=== PATIENT | female | born 1960 | race Caucasian/White ===

== ENCOUNTER 2023-07-15 11:16 | Emergency (ER) | payer MEDICAID, OTHER ==
[~2023-07-15] VITALS: Ht 152.4 cm; Wt 75.0 kg
[2023-07-15 12:28] LABS: Basophils # (auto) 0 10 ^3/uL (0-0.2); Basophils % (auto) 0.3 % (0.0-2.0); Eosinophils # (auto) 0 10 ^3/uL (0-0.8); Eosinophils % (auto) 0.2 % (0.0-7.0); Hematocrit 43.2 % (36.0-46.0); Hemoglobin 14.4 g/dL (12.2-16.2); Lymphocytes # (auto) 0.6 10 ^3/uL (0.4-5.4); Lymphocytes % (auto) 10.4 % (10.0-50.0); Mean Corpuscular Hemoglobin 33.2 pg (28.0-32.0); Mean Corpuscular Hgb Conc. 33.2 g/dL (32.0-36.0); Mean Corpuscular Volume 99.9 fL (80.0-100.0); Monocytes # (auto) 0.6 10 ^3/uL (0-1.3); Monocytes % (auto) 10.3 % (0.0-12.0); Neutrophils # (auto) 4.4 10 ^3/uL (1.6-8.6); Neutrophils % (auto) 78.8 % (37.0-80.0); Nucleated Red Blood Cells % 0.1 %; Red Blood Cells 4.33 10^6/uL (4.0-5.20); Red Cell Distribution Width 17.1 % (11.8-14.3); White Blood Cell 5.6 10^3/uL (4.4-10.8)
[2023-07-15 12:44] LABS: INR 1.01 (0.9-1.15); Partial Thromboplastin Time 23.3 SEC (24.5-34.5); Prothrombin Time 10.6 sec (9.3-11.8)
[2023-07-15 13:01] LABS: Alanine Aminotransferase 37 U/L (7-40); Albumin 4.5 g/dL (3.2-4.8); Alkaline Phosphatase 72 U/L (46-116); Anion Gap 14 (5-15); Aspartate Aminotransferase 89 U/L (13-40); Bilirubin, Total 0.8 mg/dL (0.2-1.0); Calcium 9.2 mg/dL (8.7-10.4); Carbon Dioxide 17 mmol/L (20-30); Chloride 96 mmol/L (98-107); Glucose 94 mg/dL (74-106); Sodium 127 mmol/L (136-145); Total Protein 7.7 g/dL (5.7-8.2)
[2023-07-15 13:10] LABS: BUN/Creatinine Ratio 5.6 (10.0-20.0); Blood Urea Nitrogen < 5 mg/dL (9-23)
[2023-07-15] MEDS ORDERED: NAPR-1334 PO (14:22)
[2023-07-15] MEDS ORDERED: HYDR-4902 PO (14:23)
[2023-07-15] MEDS ORDERED: MORPHINE SULFATE INJ 2 MG/ml SYRG IM ONE (17:30)
[2023-07-15] MEDS ORDERED: TETANUS-DIPTH-ACEL PERTUSSIS 0.5ML SYR Tdap IM ONE (17:30)
[2023-07-15] MEDS ORDERED: ONDANSETRON ODT 4 MG TAB PO ONE (17:30)
[2023-07-15 17:51] VITALS: BP 193/94; TEMP 98.7
[2023-07-15 17:58] VITALS: PULSE 80; RESP 16; O2SAT 98
== END 2023-07-15 18:09 | disposition home or self-care (01) ==
LOC: EDBD 11:16 → ER 11:16
DX: S42.302A Unspecified fracture of shaft of humerus, left arm, initial encounter for closed fracture (principal); F17.210 Nicotine dependence, cigarettes, uncomplicated; W18.09XA Striking against other object with subsequent fall, initial encounter; Y93.89 Activity, other specified; Y92.89 Other specified places as the place of occurrence of the external cause; Y99.8 Other external cause status
CPT/HCPCS: 29105; 36415; 71045; 73060; 73070; 73090; 80053; 84484; 85025; 85610; 85730; 96372; 99284; J2270; Q0162

== ENCOUNTER 2024-11-03 17:18 | Emergency (ER) | payer OTHER ==
[~2024-11-03] VITALS: Ht 160 cm; Wt 61.8 kg
[~2024-11-03 17:18] MED LIST: HYDR-4902 PO; NAPR-1335 PO
[2024-11-03] MEDS: ONDANSETRON HCL 4 MG/2 ML VIAL IV ONE (17:52)
[2024-11-03] MEDS: MORPHINE SULFATE 4 MG/ML SYR/VIAL IV ONE (17:57)
--- NOTE | 2024-11-03 18:52 | DVH ---
Exam: CT CT AB PEL WO CON-NO ORAL OR IV History: abd pain Comparison Study: None available at time of dictation. TECHNIQUE: Multidetector CT of the abdomen was performed from lung bases to pubic symphysis. Imaging was performed without IV contrast. Axial, coronal and sagittal multiplanar reformats were obtained fr om the axial data set by the technologist. Radiation Dose Information: CT Dose: CTDI volume is 6.29 mGy. Dose-length product is 326.71 mGy*cm FINDINGS: Evaluation of solid organs is limited due to lack of intravenous contrast use. Findings: Lung Bases: No acute or significant lung base finding. Normal heart size. No pleural or pericardial effusion. Liver: The liver is normal in size. No focal lesions. Gallbladder and Biliary Tree: Unremarkable Spleen: Unremarkable Pancreas: The pancreas is grossly normal in appearance. Adrenal Glands: Unremarkable Kidneys: Kidneys are grossly normal without calculi or hydronephrosis. Bladder: Grossly unremarkable for degree of distention. Bowel: The stomach is grossly normal in appearance. Postop changes to the stomach. Small bowel and c olon are normal in caliber and distribution. The appendix is not visualized; however, no secondary f indings of acute appendicitis identified. Ascites: Absent Lymphadenopathy: No mesenteric, retroperitoneal or periportal lymphadenopathy. Abdominal Wall and Mesentery: Unremarkable. Vasculature: The visualized abdominal aorta is normal in size and caliber. Evaluation of abdominal a nd pelvic vessels is limited due to lack of intravenous contrast. Pelvic Organs: Unremarkable Musculoskeletal: No aggressive focal bony lesions, acute fractures or dislocation. Dextroscoliosis th oracolumbar spine apex T12-L1 and L2 Soft tissues: Unremarkable IMPRESSION: 1. No findings of bowel obstruction 2. Postop changes to the stomach. 3. No nephrolithiasis or hydronephrosis 4. Radiation optimization: All CT scans at this facility use at least one of these dose optimization te chniques: automated exposure control mA and/or kV adjustment per patient size (includes targeted exa ms where dose is matched to clinical indication) or iterative reconstruction.
[2024-11-03 19:12] LABS: Basophils # (auto) 0 10 ^3/uL (0-0.2); Basophils % (auto) 0.2 % (0.0-2.0); Eosinophils # (auto) 0 10 ^3/uL (0-0.8); Eosinophils % (auto) 0.2 % (0.0-7.0); Hematocrit 36.4 % (36.0-46.0); Hemoglobin 12.5 g/dL (12.2-16.2); Lymphocytes # (auto) 1.2 10 ^3/uL (0.4-5.4); Lymphocytes % (auto) 16.9 % (10.0-50.0); Mean Corpuscular Hemoglobin 31.8 pg (28.0-32.0); Mean Corpuscular Hgb Conc. 34.4 g/dL (32.0-36.0); Mean Corpuscular Volume 92.5 fL (80.0-100.0); Monocytes # (auto) 0.3 10 ^3/uL (0-1.3); Monocytes % (auto) 4.7 % (0.0-12.0); Neutrophils # (auto) 5.5 10 ^3/uL (1.6-8.6); Platelet Count (auto) 282 10^3/uL (140-450); Red Blood Cells 3.94 10^6/uL (4.0-5.20); Red Cell Distribution Width 14.7 % (11.8-14.3)
[2024-11-03 19:24] LABS: Alanine Aminotransferase 14 U/L (7-40); Alkaline Phosphatase 100 U/L (46-116); Anion Gap 14 (5-15); Aspartate Aminotransferase 22 U/L (13-40); BUN/Creatinine Ratio 13.5 (10.0-20.0); Blood Urea Nitrogen 17 mg/dL (9-23); Calcium 10.3 mg/dL (8.7-10.4); Carbon Dioxide 22 mmol/L (20-31); Lipase 48 U/L (12-53); Potassium 3.9 mmol/L (3.5-5.1)
[2024-11-03 19:25] LABS: Total Protein 7.8 g/dL (5.7-8.2)
[2024-11-03 19:26] LABS: Albumin 4.8 g/dL (3.2-4.8); Bilirubin, Total 1.4 mg/dL (0.2-1.0); Chloride 96 mmol/L (98-107); Glucose 179 mg/dL (74-106); Sodium 132 mmol/L (136-145)
--- NOTE | 2024-11-03 20:14 | DVH ---
Procedure: CT UPPER EXTREMITY WO CONTRAST 11/03/2024 06:14 PM Indication: fall Comparison Study: Radiograph dated 07/15/2023 Technique: Axial images left humerus were obtained and reformatted in coronal and sagittal planes. All CT scans at this medical facility are performed using dose modulation techniques as appropriate t o a performed exam including the following: Automated exposure control was utilized; adjustment of th e MA and/or KV according to patient size; and use of iterative reconstruction technique. CT Dose: CTDI volume is 11.27 mGy. Dose-length product is 373.83 mGy*cm FINDINGS: Bones: No acute fracture or dislocation. 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 The glenohumeral and acromioclavicular joints are maint ained. The elbow joint is maintained. Soft tissues: Questionable puncture wound at tip of distal humeral fracture or pointing towards the a nterior mid arm markedly thinning the subcutaneous tissues. Correlate clinically. No large hematoma i s seen. Other: Left basilar subsegmental atelectasis. Left breast implant noted. IMPRESSION: 1. No acute fracture. 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
[2024-11-03] MEDS: HYDROcodone-ACET 5/325MG TAB PO ONE (21:23)
[2024-11-03] MEDS: LIDOCAINE VISCOUS 2% 15ML UD MT ONE (21:52)
[2024-11-03] MEDS: MAALOX PLUS or MAALOX 30 ML PO ONE (21:53)
--- NOTE | 2024-11-03 22:30 | ED.PDOC ---
GI ASSESSMENT HPI Comments 63-year-old female brought in by EMS. Patient complaining of lower abdominal pain which started today unprovoked. No new foods no new medications. Patient reports 10 out 10 pain. Upon arrival he was noted that patient does have a previous left humerus fracture that she never had treated. Patient states she went to two different travel specialist and they told her they could not operate. Patient states initial injury was over a year and a half ago. Chief Complaint: Abdominal Pain Time Seen by MD: 17:26 Primary Care Provider: unknown Reviewed Notes: Nurses Notes Allergies: Coded Allergies: NO KNOWN ALLERGIES (Unverified , 07/02/15) Home Meds Active Scripts Hydrocodone-Acetaminophen (Hydrocodone Bitartrate/AC 5-325 mg) 1 Tab Tab, 1 TAB PO Q6HP PRN for 3 Days, #12 TAB Prov:SAMIR MATHEW MD 07/15/23 Naproxen Sodium (Naproxen) 220 Mg Tab, 220 MG PO BID for 7 Days, #14 TAB Prov:SAMIR MATHEW MD 07/15/23 Information Source: Patient, Emergency Med Personnel Mode of Arrival: EMS Past Medical History PAST MEDICAL HISTORY: Denies Surgical History: Hernia Repair 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 Family History Family History: Reviewed,noncontributory to illness Social History Smoker: Cigarettes Alcohol: Occasionally Drugs: Denies Drug Use Lives In: Home Constitutional: denies: chills, diaphoresis, fatigue, fever, malaise, sweats, weakness, others EENTM: denies: blurred vision, double vision, ear bleeding, ear discharge, ear drainage, ear pain, ear ringing, eye pain, eye redness, hearing loss, mouth pain, mouth swelling, nasal discharge, nose bleeding, nose congestion, nose pain, photophobia, tearing, throat pain, throat swelling, voice changes, others Respiratory: denies: cough, hemoptysis, orthopnea, SOB at rest, shortness of breath, SOB with excertion, stridor, wheezing, others Cardiovascular: denies: chest pain, dizzy spells, diaphoresis, Dyspnea on exertion, edema, irregular heart beat, left arm pain, lightheadedness, palpitations, PND, syncope, others Gastrointestinal: reports: abdominal pain, nausea; denies: abdomen distended, blood streaked bowels, constipated, diarrhea, dysphagia, difficulty swallowing, hematemesis, melena, poor appetite, poor fluid intake, rectal bleeding, rectal pain, vomiting, others Genitourinary: denies: abnormal vagina bleeding, burning, dyspareunia, dysuria, flank pain, frequency, hematuria, incontinence, pain, , vagina discharge, urgency, others Neurological: denies: dizziness, fainting, headache, left sided numbness, left sided weakness, numbness, paresthesia, pre-existing deficit, right sided numbness, right sided weakness, seizure, speech problems, tingling, tremors, weakness, others Musculoskeletal: denies: back pain, gout, joint pain, joint swelling, muscle pain, muscle stiffness, neck pain, others Integumetry: denies: bruises, change in color, change in hair/nails, dryness, laceration, lesions, lumps, rash, wounds, others Allergic/Immunocompromised: denies: Difficulty Healing, Frequent Infections, Hives, Itching, others Hematologic/Lymphatic: denies: anemia, blood clots, easy bleeding, easy bruising, swollen glands, others Physical Exam General Appearance: No Apparent Distress, Normal HEENT: Normal ENT Inspection, Pharynx Normal, TMs Normal Neck: Full Range of Motion, Non-Tender, Normal, Normal Inspection Respiratory: Chest Non-Tender, Lungs Clear, No Accessory Muscle Use, No Respiratory Distress, Normal Breath Sounds Cardiovascular: No Edema, No JVD, No Murmur, No Gallop, Normal Peripheral Pulses, Regular Rate/Rhythm Breast Exam: Deferred Gastrointestinal: Epigastric (Epigastric region tender to palpation), No Organomegaly, No Pulsatile Mass, Normal Bowel Sounds, Soft Genitalia: Deferred Pelvic: Deferred Rectal: Deferred Extremities: No calf tenderness, Normal capillary refill, Normal inspection, Normal range of motion, Non-tender, No pedal edema Musculoskeletal : Location: Left Extremity Location: Arm (Obvious nonunion fracture of the medial humerus on the left side) Apperance: Normal Neurologic: Alert, business systems lead II-XII nml as Tested, No Motor Deficits, Normal Affect, Normal Mood, No Sensory Deficits Cerebellar Function: Normal Reflexes: Normal Skin: Dry, Normal Color, Warm Lymphatic: No Adenopathy Was a procedure done? Was a procedure done?: No GI differential Dx Differential Diagnosis: Appendicitis, Cholecystitis, Constipation, Gastritis/PUD, Gastroenteritis, GI hemorrhage, Hepatitis (Got them he was enough), UTI X-Ray, Labs, Meds, VS Vital Signs Date Time Temp Pulse Resp B/P (MAP) Pulse Ox O2 Delivery O2 Flow Rate FiO2 11/03/24 17:57 68 20 110/65 11/03/24 17:18 98.6 81 22 193/116 (141) 96 Lab Test 11/03/24 18:32 Range/Units White Blood Count 7.0 4.4-10.8 10^3/uL Red Blood Count 3.94 L 4.0-5.20 10^6/uL Hemoglobin 12.5 12.2-16.2 g/dL Hematocrit 36.4 36.0-46.0 % Mean Corpuscular Volume 92.5 80.0-100.0 fL Mean Corpuscular Hemoglobin 31.8 28.0-32.0 pg Mean Corpuscular Hemoglobin Concent 34.4 32.0-36.0 g/dL Red Cell Distribution Width 14.7 H 11.8-14.3 % Platelet Count 282 140-450 10^3/uL Mean Platelet Volume 6.7 L 6.9-10.8 fL Neutrophils (%) (Auto) 78.0 37.0-80.0 % Lymphocytes (%) (Auto) 16.9 10.0-50.0 % Monocytes (%) (Auto) 4.7 0.0-12.0 % Eosinophils (%) (Auto) 0.2 0.0-7.0 % Basophils (%) (Auto) 0.2 0.0-2.0 % Neutrophils # (Auto) 5.5 1.6-8.6 10 ^3/uL Lymphocytes # (Auto) 1.2 0.4-5.4 10 ^3/uL Monocytes # (Auto) 0.3 0-1.3 10 ^3/uL Eosinophils # (Auto) 0 0-0.8 10 ^3/uL Basophils # (Auto) 0 0-0.2 10 ^3/uL Nucleated Red Blood Cells 0.0 % Sodium Level 132 L 136-145 mmol/L Potassium Level 3.9 3.5-5.1 mmol/L Chloride Level 96 L 98-107 mmol/L Carbon Dioxide Level 22 20-31 mmol/L Anion Gap 14 5-15 Blood Urea Nitrogen 17 9-23 mg/dL Creatinine 1.26 H 0.550-1.02 mg/dL Glomerular Filtration Rate Calc 47 >90 mL/min BUN/Creatinine Ratio 13.5 10.0-20.0 Serum Glucose 179 H 74-106 mg/dL Calcium Level 10.3 8.7-10.4 mg/dL Total Bilirubin 1.4 H 0.2-1.0 mg/dL Aspartate Amino Transferase (AST) 22 13-40 U/L Alanine Aminotransferase (ALT) 14 7-40 U/L Alkaline Phosphatase 100 46-116 U/L Total Protein 7.8 5.7-8.2 g/dL Albumin 4.8 3.2-4.8 g/dL Lipase 48 12-53 U/L Current Medications Medications (Trade) Dose Ordered Sig/Cata Route Start Time Stop Time Status Last Admin Morphine Sulfate 4 mg ONCE ONCE IV 11/03/24 17:30 11/03/24 17:31 DC 11/03/24 17:57 Ondansetron HCl (Zofran) 4 mg ONCE ONCE IV 11/03/24 17:30 11/03/24 17:31 DC 11/03/24 17:52 Acetaminophen/ Hydrocodone Bitart ([place] 5/325MG Tab) 1 tab ONCE ONCE PO 11/03/24 21:30 11/03/24 21:31 DC 11/03/24 21:23 Lidocaine HCl (Xylocaine 2% Viscous) 5 ml ONCE ONCE MT 11/03/24 21:30 11/03/24 21:31 DC 11/03/24 21:52 Al Hydrox/Mg Hydrox/Simethicone (Maalox Plus) 30 ml ONCE ONCE PO 11/03/24 21:30 11/03/24 21:31 DC 11/03/24 21:53 X-Ray, Labs, Meds, VS Comment While patient was in the emergency department patient threw herself on the floor. Surveillance be reviewed watching patient police here foot down and pull herself out of the chair onto the floor. Patient was consulted on self-harm and not throwing herself on the floor. Orthopedic he was consulted in regards to left upper arm. They state that due to patient not having any pain he was less emergent she can follow up outpatient. Time of 1ST Reevaluation: 22:30 Reevaluation 1ST: Unchanged Patient Education/Counseling: Diagnosis, Treatment, Need For Follow Up (Patient advised to follow-up in the emergency room in the next 24 to 48 hours if symptoms do not improve. Advised follow-up with PCP in the next 3 to 5 days. Patient verbalized understanding. ) Family Education/Counseling: Diagnosis, Treatment Departure 1 Departure Time of Disposition: 22:29 Impression: Primary Impression: Gastritis Qualified Codes: K29.30 - Chronic superficial gastritis without bleeding Additional Impression: Closed left humeral fracture Qualified Codes: S42.322K - Displaced transverse fracture of shaft of humerus, left arm, subsequent encounter for fracture with nonunion Disposition: 01 HOME / SELF CARE / HOMELESS Condition: Fair Discharged With: Self Critical Care Note Critical Care Time?: No Stability Stability form required: No Heart Score Heart Score: Heart Score Response (Comments) Value History N/A 0 EKG N/A 0 Age N/A 0 Risk Factors N/A 0 Troponin N/A 0 Total 0 NISHI GRANADOS Nov 03, 2024 22:30
[2024-11-03 22:52] VITALS: BP 183/110; PULSE 77; RESP 16; TEMP 98.5; O2SAT 95
[2024-11-03] MEDS: cloNIDine HCL 0.1 MG TAB PO ONE (23:03)
== END 2024-11-03 23:24 | disposition home or self-care (01) ==
LOC: EDBD 17:18 → ER 17:21
DX: K29.70 Gastritis, unspecified, without bleeding (principal); S42.392A Other fracture of shaft of left humerus, initial encounter for closed fracture; F17.210 Nicotine dependence, cigarettes, uncomplicated; Z98.890 Other specified postprocedural states; Z79.899 Other long term (current) drug therapy; X58.XXXA Exposure to other specified factors, initial encounter; Y93.89 Activity, other specified; Y92.89 Other specified places as the place of occurrence of the external cause; Y99.8 Other external cause status
CPT/HCPCS: 36415; 73200; 74176; 80053; 83690; 85025; 96374; 96375; 99285; J2270; J2405

== ENCOUNTER 2024-11-05 01:50 | Emergency (ER) | payer OTHER ==
[~2024-11-05] VITALS: Ht 160 cm; Wt 61.8 kg
--- NOTE | 2024-11-05 02:01 | ED.PDOC ---
GI ASSESSMENT HPI Comments 63 year old female brought in by EMS presents to the ED with a chief complaint of abdominal pain onset 2 days. Per EMS, patient was given Zofran in route due to nausea. Patient states she was seen here 2 days ago for abdominal pain, was diagnosed with Gastritis and was discharged home. Patient states pain, describes as a constant, sharp and burning sensation, has worsen and is currently experiencing nausea/vomiting. She has been taking Aleve with no relief of symptoms. Denies any PMHx as well as chest pain, shortness of breath, headache, dysuria, hematuria. No other symptoms or modifying factors present at this time. Time Seen by MD: 01:55 Primary Care Provider: unknown Allergies: Coded Allergies: NO KNOWN ALLERGIES (Unverified , 07/02/15) Home Meds Active Scripts Hydrocodone-Acetaminophen (Hydrocodone Bitartrate/AC 5-325 mg) 1 Tab Tab, 1 TAB PO Q6HP PRN for 3 Days, #12 TAB Prov:SAMIR MATHEW MD 07/15/23 Naproxen Sodium (Naproxen) 220 Mg Tab, 220 MG PO BID for 7 Days, #14 TAB Prov:SAMIR MATHEW MD 07/15/23 Information Source: Patient, Emergency Med Personnel Mode of Arrival: EMS Timing: Days Duration: Since onset Prehospital treatment: Other (Zofran) Quality: Burning Severity: Moderate Recent: None Recent Hx of: None Pain Location: Diffuse Modifying Factors: Nothing Associated sign and symptoms: Nausea, Vomiting, Abdominal Pain Past Medical History PAST MEDICAL HISTORY: Denies Surgical History: Hernia Repair Surgical History (Other): gastric bypass 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 PROGRAM MANAGER History: No Pertinent TRANSITION PROGRAM MANAGER History Family History Family History: Reviewed,noncontributory to illness Social History Smoker: Cigarettes Alcohol: Occasionally Drugs: Denies Drug Use Lives In: Home Physical Exam General Appearance: No Apparent Distress, Normal HEENT: Normal ENT Inspection, Pharynx Normal, TMs Normal Neck: Full Range of Motion, Non-Tender, Normal, Normal Inspection Respiratory: Chest Non-Tender, Lungs Clear, No Accessory Muscle Use, No Respiratory Distress, Normal Breath Sounds Cardiovascular: No Edema, No JVD, No Murmur, No Gallop, Normal Peripheral Pulses, Regular Rate/Rhythm Breast Exam: Deferred Gastrointestinal: No Organomegaly, Non Tender, No Pulsatile Mass, Normal Bowel Sounds, Soft Genitalia: Deferred Pelvic: Deferred Rectal: Deferred Extremities: No calf tenderness, Normal capillary refill, Normal inspection, Normal range of motion, Non-tender, No pedal edema Musculoskeletal : Apperance: Normal Neurologic: Alert, manager ems II-XII nml as Tested, No Motor Deficits, Normal Affect, Normal Mood, No Sensory Deficits Cerebellar Function: Normal Reflexes: Normal Skin: Dry, Normal Color, Warm Lymphatic: No Adenopathy Was a procedure done? Was a procedure done?: No GI differential Dx Differential Diagnosis: Cholecystitis, Gastritis/PUD, Gastroenteritis, Dehydration X-Ray, Labs, Meds, VS Vital Signs Date Time Temp Pulse Resp B/P (MAP) Pulse Ox O2 Delivery O2 Flow Rate FiO2 11/05/24 03:50 76 18 172/115 11/05/24 01:58 97.3 77 18 202/117 (145) 100 11/05/24 01:52 71 Lab Test 11/05/24 02:05 Range/Units White Blood Count 3.2 #L 4.4-10.8 10^3/uL Red Blood Count 4.10 4.0-5.20 10^6/uL Hemoglobin 12.6 12.2-16.2 g/dL Hematocrit 37.7 36.0-46.0 % Mean Corpuscular Volume 91.7 80.0-100.0 fL Mean Corpuscular Hemoglobin 30.6 28.0-32.0 pg Mean Corpuscular Hemoglobin Concent 33.4 32.0-36.0 g/dL Red Cell Distribution Width 14.8 H 11.8-14.3 % Platelet Count 256 140-450 10^3/uL Mean Platelet Volume 6.4 L 6.9-10.8 fL Neutrophils (%) (Auto) 78.4 37.0-80.0 % Lymphocytes (%) (Auto) 8.0 L 10.0-50.0 % Monocytes (%) (Auto) 13.5 H 0.0-12.0 % Eosinophils (%) (Auto) 0.0 0.0-7.0 % Basophils (%) (Auto) 0.1 0.0-2.0 % Neutrophils # (Auto) 2.5 1.6-8.6 10 ^3/uL Lymphocytes # (Auto) 0.3 L 0.4-5.4 10 ^3/uL Monocytes # (Auto) 0.4 0-1.3 10 ^3/uL Eosinophils # (Auto) 0 0-0.8 10 ^3/uL Basophils # (Auto) 0 0-0.2 10 ^3/uL Nucleated Red Blood Cells 0.1 % Sodium Level 131 L 136-145 mmol/L Potassium Level 4.1 3.5-5.1 mmol/L Chloride Level 93 L 98-107 mmol/L Carbon Dioxide Level 20 20-31 mmol/L Anion Gap 18 H 5-15 Blood Urea Nitrogen 24 H 9-23 mg/dL Creatinine 1.15 H 0.550-1.02 mg/dL Glomerular Filtration Rate Calc 53 >90 mL/min BUN/Creatinine Ratio 20.9 H 10.0-20.0 Serum Glucose 145 H 74-106 mg/dL Calcium Level 10.7 H 8.7-10.4 mg/dL Lipase 38 12-53 U/L Current Medications Medications (Trade) Dose Ordered Sig/Cata Route Start Time Stop Time Status Last Admin Sodium Chloride 1,000 ml @ 1,000 mls/hr Q1H ONCE IV 11/05/24 02:00 11/05/24 02:59 DC 11/05/24 03:49 Morphine Sulfate 4 mg ONCE ONCE IV 11/05/24 02:00 11/05/24 02:16 DC 11/05/24 03:50 Ondansetron HCl (Zofran) 4 mg ONCE ONCE IV 11/05/24 02:00 11/05/24 02:16 DC 11/05/24 03:50 Pantoprazole Sodium (Protonix) 40 mg ONCE ONCE IV 11/05/24 02:00 11/05/24 02:16 DC 11/05/24 03:50 Time of 1ST Reevaluation: 02:25 Reevaluation 1ST: Unchanged Patient Education/Counseling: Diagnosis, Treatment, Prognosis Family Education/Counseling: No Family Present Departure 1 Departure Time of Disposition: 04:30 (Patient presented with abdominal pain that was concerning for possible appendicits, gastritis, cholecystitis, colitis, gastroenteritis, or orther possible surgical emergency. Data: 1. I ordered and reviewed the result of at least 3 labs including a CBC, BMP, and Urinalysis. 2. I independently interpreted the following tests: CT Abdoment and Pelvis was then 2 days ago was benign.Risk:This patient has a high risk of morbidity due to further diagnostic testing or treatment and may suffer from an acute abdominal process disorder. Fortunately workup reveals likely gastritis and patient can be safely discharged to home with outpatient follow up.) Impression: Primary Impression: Gastritis Qualified Codes: K29.00 - Acute gastritis without bleeding Additional Impression: Gastroenteritis Disposition: HOME / SELF CARE / HOMELESS Condition: Stable Additional Instructions: You likely have gastroenteritis. It is important to stay well hydrated and well rested. This usually resolves within 1 week. You were prescribed Zofran to take as needed for nausea. Should avoid taking NSAIDs if your stomach hurts. You can take [id number] omeprazole daily for 2 weeks If your symptoms worsen or you have any other concerns please return to the ER. e-Prescriptions Ondansetron Odt 4MG Tab (ZOFRAN PO) 4 Mg Tb 4 MG PO TID PRN for 4 Days, #12 TAB ODT TAB-DISSOLVE IN MOUTH, THEN SWALLOW Prov: CEE MA MD 11/05/24 Discharged With: Self Critical Care Note Critical Care Time?: No Stability Stability form required: No I personally scribed for CEE MA MD ([email or web address]) on 11/05/24 at 02:01. Electronically submitted by Alyssa Scott ([email or web address]). CEE MA MD Nov 05, 2024 02:01
[2024-11-05 02:17] LABS: Basophils # (auto) 0 10 ^3/uL (0-0.2); Basophils % (auto) 0.1 % (0.0-2.0); Eosinophils # (auto) 0 10 ^3/uL (0-0.8); Hematocrit 37.7 % (36.0-46.0); Hemoglobin 12.6 g/dL (12.2-16.2); Lymphocytes # (auto) 0.3 10 ^3/uL (0.4-5.4); Mean Corpuscular Hemoglobin 30.6 pg (28.0-32.0); Mean Corpuscular Hgb Conc. 33.4 g/dL (32.0-36.0); Mean Corpuscular Volume 91.7 fL (80.0-100.0); Monocytes # (auto) 0.4 10 ^3/uL (0-1.3); Monocytes % (auto) 13.5 % (0.0-12.0); Neutrophils # (auto) 2.5 10 ^3/uL (1.6-8.6); Neutrophils % (auto) 78.4 % (37.0-80.0); Nucleated Red Blood Cells % 0.1 %; Platelet Count (auto) 256 10^3/uL (140-450); Red Cell Distribution Width 14.8 % (11.8-14.3); White Blood Cell 3.2 10^3/uL (4.4-10.8)
[2024-11-05 02:26] LABS: Potassium 4.1 mmol/L (3.5-5.1)
[2024-11-05 02:27] LABS: Anion Gap 18 (5-15); Carbon Dioxide 20 mmol/L (20-31)
[2024-11-05 02:32] LABS: Calcium 10.7 mg/dL (8.7-10.4); Chloride 93 mmol/L (98-107); Sodium 131 mmol/L (136-145)
[2024-11-05 02:33] LABS: BUN/Creatinine Ratio 20.9 (10.0-20.0); Lipase 38 U/L (12-53)
[2024-11-05 03:12] LABS: Blood Urea Nitrogen 24 mg/dL (9-23); Glucose 145 mg/dL (74-106)
[2024-11-05] MEDS: SODIUM CHLORIDE 0.9% 1,000 ML IV ONE (03:49)
[2024-11-05] MEDS: ONDANSETRON HCL 4 MG/2 ML VIAL IV ONE (03:50)
[2024-11-05] MEDS: PANTOPRAZOLE 40 MG/10 ML VIAL INJ IV ONE (03:50)
[2024-11-05] MEDS: MORPHINE SULFATE 4 MG/ML SYR/VIAL IV ONE (03:50)
[2024-11-05] MEDS ORDERED: ZOFR4T PO (04:31)
--- NOTE | 2024-11-05 06:30 | ECG ---
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
[2024-11-05 07:52] VITALS: BP 139/99; PULSE 99; RESP 17; TEMP 97.6; O2SAT 98
== END 2024-11-05 07:59 | disposition home or self-care (01) ==
LOC: EDBD 01:50 → ER 01:50
DX: K52.9 Noninfective gastroenteritis and colitis, unspecified (principal); F17.210 Nicotine dependence, cigarettes, uncomplicated; Z87.19 Personal history of other diseases of the digestive system; Z98.84 Bariatric surgery status; Z98.890 Other specified postprocedural states
CPT/HCPCS: 36415; 80048; 83690; 85025; 93005; 96361; 96374; 96375; 99284; J2270; J2405; J2470; J7030

== ENCOUNTER 2024-11-06 20:50 | Inpatient (IN) | payer OTHER ==
[~2024-11-06] VITALS: Ht 157.5 cm; Wt 61.8 kg
[~2024-11-06 20:50] MED LIST changes: +ZOFR4T PO
[2024-11-06] MEDS: VANCOMYCIN 1GM/250ML KIT 200 ML IV ONE (21:15)
[2024-11-06] MEDS: ONDANSETRON HCL 4 MG/2 ML VIAL IV ONE (21:15)
[2024-11-06] MEDS: CEFEPIME 2GM/50ML NS 50 ML IV ONE (21:15)
[2024-11-06] MEDS: AZITHROMYCIN 500MG/ 250ML 250 ML IV ONE (21:15)
--- NOTE | 2024-11-06 21:18 | ED.PDOC ---
CPR-HPI HPI Comments 63 year old female came to ER via EMS due to CPR. Per EMS, patient was picked up at a [facility], with an initial call of shortness of breath, Upon arrival, noted patient to be laying at bed, agonal breathing, bradycardic at 20's. Patient was given epinephrine, went into VFIB, and patient was shocked twice while en route to the ER. Pulses were regained. Chest compression discontinued, and ambu bagging was continued. Fluids given. Blood sugar on scene was 26. Patient was seen here yesterday for abdominal pain and was diagnosed with gastritis, discharged improved with medications yesterday. Chief Complaint: CPR Time Seen by MD: 21:18 Primary Care Provider: unknown Reviewed Notes: Electronic Prepress Technician Notes Allergies: Coded Allergies: NO KNOWN ALLERGIES (Unverified , 07/02/15) Home Meds Active Scripts Ondansetron Odt 4MG Tab (ZOFRAN PO) 4 Mg Tb, 4 MG PO TID PRN for 4 Days, #12 TAB ODT TAB-DISSOLVE IN MOUTH, THEN SWALLOW Prov:CEE VALVERDE MD 11/05/24 Hydrocodone-Acetaminophen (Hydrocodone Bitartrate/AC 5-325 mg) 1 Tab Tab, 1 TAB PO Q6HP PRN for 3 Days, #12 TAB Prov:SAMIR MATHEW MD 07/15/23 Naproxen Sodium (Naproxen) 220 Mg Tab, 220 MG PO BID for 7 Days, #14 TAB Prov:SAMIR MATHEW MD 07/15/23 Information Source: Emergency Med Personnel Mode of Arrival: EMS Timing: Hours Duration: Down time prior EMS:, Total time prior hopital: Inital rhythm: Bradycardia Treatment: CPR, IV, Epinephrine Response: Sustained return of pulse Associated signs and symptoms: Abdominal Pain Past Medical History PAST MEDICAL HISTORY: 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 Past Medical History (Other): Closed left humeral fracture Surgical History: 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 Family History Family History: 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 Social History Smoker: 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 Alcohol: 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 Drugs: 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 Lives In: Assisted Care Unable to Obtain due to: Medical Urgency, Intubated Physical Exam General Appearance: Severe Distress HEENT: Other (Pupils fixed and dilated) Neck: Normal Inspection Respiratory: Other (Patient's pain back and bilateral breath sounds) Cardiovascular: No Murmur Breast Exam: Normal Gastrointestinal: No Organomegaly, No Pulsatile Mass Genitalia: Deferred Pelvic: Deferred Rectal: Deferred Extremities: Normal range of motion, No pedal edema Neurologic: Other (Patient unresponsive) Cerebellar Function: Unable to Test Reflexes: NOT DONE Skin: Cyanosis Lymphatic: No Adenopathy Was a procedure done? 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 Indication: Hypotension, Inability to obtain IV, Suspected infection Room prepared for procedure: Yes Public Safety Teacher performed hand hygien: Yes Maximal sterile barrier precau: Mask/Eye shield, Sterile gown, Cap, Sterlie gloves, Large sterlie drape Skin Preparation: Providine iodine Skin preparation completely dr: Yes Insertion site: Right, Femoral Central line catheter type: Tunneled- not dialysis Number of lumens: 3 Central line exchanged over a: Yes Antiseptic ointment applied to: Yes Post Assessment: Chest X-Ray Informed consent obtained: No Risks/benefits/alt described: No Intubation Indication: Respiratory Insufficiency, Altered Mental Status, Airway Protection Prep: Preoxygenation Pretreated with: Nothing Medicated with: Nothing Intubation Approach: Orotracheal Intubation size: cm (8) Informed consent obtained: No Risks/benefits/alt described: No Differential Dx CPR Differential Diagnosis: Cardiopulmonary arrest, Dysrhythmia, Electrolyte disorder, Myocardial Infarction, Pulmonary Embolus, Respiratory Failure X-Ray, Labs, Meds, VS Vital Signs Date Time Temp Pulse Resp B/P (MAP) Pulse Ox O2 Delivery O2 Flow Rate FiO2 11/07/24 03:01 89.1 88 92/45 (61) 92 89.1 11/07/24 03:00 92/45 11/07/24 03:00 92/45 11/07/24 03:00 92/45 11/07/24 03:00 92/45 11/07/24 02:53 89.1 91 139/83 (101) 91 89.1 11/07/24 02:50 92.5 87 22 155/94 96 70 92.5 11/07/24 02:38 155/94 11/07/24 02:31 89.2 91 155/94 (114) 92 89.2 11/07/24 02:30 155/94 11/07/24 02:16 89.4 78 147/73 (97) 94 89.4 11/07/24 02:00 89.6 71 122/77 (92) 95 89.6 11/07/24 02:00 122/77 11/07/24 02:00 122/77 11/07/24 02:00 122/77 11/07/24 01:50 87 22 131/81 (98) 96 70 11/07/24 01:46 90.3 89 131/81 (98) 95 90.3 11/07/24 01:30 106/77 11/07/24 01:30 90.3 95 106/77 (87) 95 90.3 11/07/24 01:20 81/48 11/07/24 01:17 90.5 92 81/48 (59) 93 90.5 11/07/24 01:02 92 159/124 (136) 89 11/07/24 01:00 159/124 11/07/24 01:00 159/124 11/07/24 00:59 92 18 159/124 (136) 96 70 11/07/24 00:42 94 175/98 (123) 94 11/07/24 00:40 175/98 11/07/24 00:40 175/98 11/07/24 00:40 94 18 94 Mechanical Ventilator+ 75 75 11/07/24 00:11 95 95/58 (70) 11/07/24 00:03 94 97/58 (71) 96 11/07/24 00:00 50/35 11/06/24 23:47 94 16 102/62 (75) 96 11/06/24 23:45 148/93 11/06/24 23:45 148/93 11/06/24 23:32 92 18 103/64 (77) 98 11/06/24 23:18 99 25 140/57 (84) 93 50 11/06/24 23:17 104 17 148/93 (111) 98 11/06/24 22:56 108 18 140/57 (84) 97 11/06/24 22:45 168/88 11/06/24 22:45 120/74 11/06/24 22:39 106 22 49/21 (30) 99 11/06/24 22:27 109 20 101/67 (78) 99 11/06/24 21:56 117 16 79/47 (58) 92 11/06/24 21:45 170/90 11/06/24 21:41 124 16 83/55 (64) 97 11/06/24 21:30 131 14 101/65 (77) 98 11/06/24 21:30 158/97 11/06/24 21:25 170/101 11/06/24 21:20 225/131 11/06/24 21:20 137 14 122/77 (92) 93 11/06/24 21:15 161/136 11/06/24 21:15 121 14 126/85 (99) 93 11/06/24 21:12 115 24 100 11/06/24 21:10 119 11/06/24 21:10 135 14 158/97 (117) 99 11/06/24 21:05 128 21 170/101 (124) 99 11/06/24 20:55 Mechanical Ventilator+ 100 100 11/06/24 20:50 98 22 161/136 (144) 99 11/06/24 20:50 92.5 97 0 161/136 (144) 0 Lab Test 11/07/24 03:10 11/07/24 01:32 11/07/24 00:10 11/06/24 23:00 Range/Units Sodium Level 128 L 136-145 mmol/L Potassium Level 4.8 3.5-5.1 mmol/L Chloride Level 95 L 98-107 mmol/L Carbon Dioxide Level < 10 *L 20-31 mmol/L Anion Gap 23.14652 H 5-15 Blood Urea Nitrogen 58 H 9-23 mg/dL Creatinine 3.22 H 0.550-1.02 mg/dL Glomerular Filtration Rate Calc 15 >90 mL/min BUN/Creatinine Ratio 18.0 10.0-20.0 Serum Glucose 231 H 74-106 mg/dL Lactic Acid Level 13.8 *H 13.7 *H 0.4-2.0 mmol/L Calcium Level 8.8 8.7-10.4 mg/dL Total Bilirubin 0.6 0.2-1.0 mg/dL Aspartate Amino Transferase (AST) 327 H 13-40 U/L Alanine Aminotransferase (ALT) 105 H 7-40 U/L Alkaline Phosphatase 100 46-116 U/L Troponin I High Sensitivity 49 *H 31 </=34 ng/L Total Protein 5.0 L 5.7-8.2 g/dL Albumin 3.0 L 3.2-4.8 g/dL Blood Gas Specimen Type Arterial Blood Gas Sample Site Right radial Blood Gas Patient Temperature 37.0 Arterial Blood Date Drawn Arterial Blood pH 6.918 *L 7.350-7.450 Arterial Blood Partial Pressure CO2 31.9 L 32.0-45.0 mmHg Arterial Blood Partial Pressure O2 118.1 H 83.0-108.0 mmHg Arterial Blood HCO3 6.4 L 21.0-28.0 mmol/L Arterial Blood Oxygen Saturation 95.2 94.0-98.0 % Arterial Blood Base Excess -24.8 L -2.0-3.0 mmol/L Arterial Blood Oxyhemoglobin 93.2 L 94.0-98.0 % Arterial Blood Carboxyhemoglobin 1.5 0.5-1.5 % Arterial Blood Methemoglobin 0.6 0.0-1.5 % Nick Test Modified Blood Gas Total Hemoglobin 9.30 L 12.0-16.0 g/dL Blood Gas Set Respiration Rate 18.0 Blood Gas Modality Vent - ac FiO2 % 70.0 Blood Gas Tidal Volume 450.0 Blood Gas PEEP or CPAP 5.0 Blood Gas Critical Value Read Back Yes Blood Gas Notified Whom michell Valverde md Blood Gas Notified Time [id number] Blood Gas Notified By bobby Marsh rrt Test 11/06/24 22:00 11/06/24 21:00 Range/Units White Blood Count 6.0 # 4.4-10.8 10^3/uL Red Blood Count 2.99 L 4.0-5.20 10^6/uL Hemoglobin 9.2 #L 12.2-16.2 g/dL Hematocrit 29.7 #L 36.0-46.0 % Mean Corpuscular Volume 99.2 # 80.0-100.0 fL Mean Corpuscular Hemoglobin 30.9 28.0-32.0 pg Mean Corpuscular Hemoglobin Concent 31.1 L 32.0-36.0 g/dL Red Cell Distribution Width 15.3 H 11.8-14.3 % Platelet Count 186 140-450 10^3/uL Mean Platelet Volume 8.3 6.9-10.8 fL Neutrophils (%) (Auto) 37.0-80.0 % Lymphocytes (%) (Auto) 10.0-50.0 % Monocytes (%) (Auto) 0.0-12.0 % Basophils (%) (Auto) 0.0-2.0 % Neutrophils # (Auto) 1.6-8.6 10 ^3/uL Lymphocytes # (Auto) 0.4-5.4 10 ^3/uL Monocytes # (Auto) 0-1.3 10 ^3/uL Differential Total Cells Counted 100.0 100 Neutrophils % (Manual) 44 37.0-80.0 Band Neutrophils % (Manual) 16 Lymphocytes % (Manual) 17 10.0-50.0 Monocytes % (Manual) 23 H 0-12 Eosinophils % (Manual) 0 0-7 Basophils % (Manual) 0 0.0-2.0 Metamyelocytes % (manual) 0 Myelocytes % (Manual) 0 Promyelocytes % (Manual) 0 Blast Cells % (Manual) 0 Nucleated Red Blood Cells 1.0 % Reactive Lymphocytes 0 Platelet Estimate Adequate Sodium Level 127 L 136-145 mmol/L Potassium Level 4.5 3.5-5.1 mmol/L Chloride Level 93 L 98-107 mmol/L Carbon Dioxide Level < 10 *L 20-31 mmol/L Anion Gap 24.25313 H 5-15 Blood Urea Nitrogen 61 #H 9-23 mg/dL Creatinine 3.18 #H 0.550-1.02 mg/dL Glomerular Filtration Rate Calc 16 >90 mL/min BUN/Creatinine Ratio 19.2 10.0-20.0 Serum Glucose 274 H 74-106 mg/dL Calcium Level 8.7 8.7-10.4 mg/dL Total Bilirubin 0.6 0.2-1.0 mg/dL Aspartate Amino Transferase (AST) 195 H 13-40 U/L Alanine Aminotransferase (ALT) 78 H 7-40 U/L Alkaline Phosphatase 83 46-116 U/L Troponin I High Sensitivity 22 11 </=34 ng/L Total Protein 5.9 5.7-8.2 g/dL Albumin 3.5 3.2-4.8 g/dL Lipase 126 H 12-53 U/L Lactic Acid Level 13.6 *H 0.4-2.0 mmol/L B-Type Natriuretic Peptide 369.04 0-100 pg/mL Plasma/Serum Blood Alcohol < 3.0 <10 mg/dL Microbiology Date/Time Source Procedure Growth Status 11/06/24 21:07 Sputum Gram Stain - Final Complete 11/06/24 21:07 Respiratory Culture - Final Escherichia coli Klebsiella pneumoniae Complete 11/06/24 21:00 Blood Blood Culture - Preliminary NO GROWTH AFTER 72 HOURS OF INCUBATION. Resulted 11/06/24 20:55 Blood Blood Culture - Final Klebsiella pneumoniae Complete XY L HUMERUS XRAY, INDICATION: found down, signs of trauma TECHNICAL DATA: Frontal and lateral views were obtained of the left humerus. COMPARISON: XY L HUMERUS XRAY on DOS: 07/15/23 Findings/ IMPRESSION: Displaced overlapping fracture of the mid humeral diaphysis. CHEST RADIOGRAPH Indication: intubated Technique: Single frontal view of the chest was obtained Comparison: XY CHEST XRAY 1 VIEW on DOS: 07/15/23 FINDINGS: Lines and Tubes: Endotracheal tube projects in proper position. Lungs: Clear Pleura: No effusion. No pneumothorax. Cardiomediastinal contours: Unremarkable Bones: Unremarkable IMPRESSION: Clear lungs. Time of 1ST Reevaluation: 21:10 Reevaluation 1ST: Unchanged Patient Education/Counseling: Pt Unresponsive Family Education/Counseling: No Family Present Departure 1 Departure Time of Disposition: 17:42 (Patient presented after cardiac arrest. Patient with many comorbidities. He is not patient here yesterday for gastritis and after patient received medications was tolerating p.o. passing gas using the bathroom and feeling well she was discharged home. Patient is now intubated and central line placed a line placed and wall check patient for various etiologies admit patient to ICU) Impression: Primary Impression: Cardiac arrest Disposition: ADMITTED INPATIENT Admit to: ICU Condition: Critical Critical Care Note Critical Care Time?: Yes (1 hr-critical care time only) Critical care comment: status post CPR Authorized and Performed by: Cee Valverde MD Total critical care time: Approximately 194 minutes Due to a high probability of clinically significant, life threatening deterioration, the patient required my highest level of preparedness to intervene emergently and I personally spent this critical care time directly and personally managing the patient. This critical care time included obtaining a history; examining the patient; pulse oximetry; ordering and review of studies; arranging urgent treatment with development of a management plan; evaluation of patient's response to treatment; frequent reassessment; and, discussions with other providers. This critical care time was performed to assess and manage the high probability of imminent, life-threatening deterioration that could result in multi-organ failure. It was exclusive of separately billable procedures and treating other p atients and teaching time. Please see my other sections and the rest of the note for further information on patient assessment and treatment. Heart Score Heart Score: Heart Score Response (Comments) Value History N/A 0 EKG N/A 0 Age N/A 0 Risk Factors N/A 0 Troponin N/A 0 Total 0 Stability Stability form required: No I personally scribed for CEE VALVERDE MD ([facility]) on 11/06/24 at 21:18. Electronically submitted by Luis Bucio ([facility] I personally scribed for CEE VALVERDE MD ([facility] on 11/06/24 at 22:58. Elect ronically submitted by Luis Bucio ([facility] I personally scribed for CEE VALVERDE MD ([facility]) on 11/07/24 at 04:44. E lectronically submitted by Luis Bucio ([facility] CEE VALVERDE MD Nov 06, 2024 21:18
--- NOTE | 2024-11-06 21:35 | ECG ---
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
--- NOTE | 2024-11-06 21:37 | DVH ---
XY L HUMERUS XRAY, INDICATION: found down, signs of trauma TECHNICAL DATA: Frontal and lateral views were obtained of the left humerus. COMPARISON: XY L HUMERUS XRAY on DOS: 07/15/23 Findings/ IMPRESSION: Displaced overlapping fracture of the mid humeral diaphysis.
[2024-11-06 21:52] LABS: Lactic Acid w/Reflex 13.6 mmol/L (0.4-2.0)
[2024-11-06] MEDS ORDERED: PROPOFOL 100 ML IV SCH (22:00)
--- NOTE | 2024-11-06 22:09 | DVH ---
CHEST RADIOGRAPH Indication: intubated Technique: Single frontal view of the chest was obtained Comparison: XY CHEST XRAY 1 VIEW on DOS: 07/15/23 FINDINGS: Lines and Tubes: Endotracheal tube projects in proper position. Lungs: Clear Pleura: No effusion. No pneumothorax. Cardiomediastinal contours: Unremarkable Bones: Unremarkable IMPRESSION: Clear lungs.
[2024-11-06 22:19] LABS: Hematocrit 29.7 % (36.0-46.0); Hemoglobin 9.2 g/dL (12.2-16.2); Mean Corpuscular Hemoglobin 30.9 pg (28.0-32.0); Mean Corpuscular Hgb Conc. 31.1 g/dL (32.0-36.0); Mean Corpuscular Volume 99.2 fL (80.0-100.0); Platelet Count (auto) 186 10^3/uL (140-450); Red Blood Cells 2.99 10^6/uL (4.0-5.20); Red Cell Distribution Width 15.3 % (11.8-14.3)
[2024-11-06 22:23] LABS: Basophils % (manual) 0 (0.0-2.0); Blast Cells 0; Eosinophils % (manual) 0 (0-7); Metamyelocytes % 0; Myelocytes % 0; Promyelocytes % 0; Reactive Lymphocytes 0
[2024-11-06 22:44] LABS: Band Neutrophils % (manual) 16; Lymphocytes % (manual) 17 (10.0-50.0); Monocytes % (manual) 23 (0-12); Platelet Estimate Adequate
[2024-11-06] MEDS: MIDAZOLAM DRIP 50 mg/50mL 50 ML IV ONE (22:44)
[2024-11-06] MEDS: MIDAZOLAM DRIP 50 mg/50mL 50 ML IV SCH (22:45)
[2024-11-06 23:12] LABS: Potassium 4.5 mmol/L (3.5-5.1); Sodium 127 mmol/L (136-145)
[2024-11-06 23:13] LABS: Alanine Aminotransferase 78 U/L (7-40); Albumin 3.5 g/dL (3.2-4.8); Alkaline Phosphatase 83 U/L (46-116); Aspartate Aminotransferase 195 U/L (13-40); BUN/Creatinine Ratio 19.2 (10.0-20.0); Bilirubin, Total 0.6 mg/dL (0.2-1.0); Blood Urea Nitrogen 61 mg/dL (9-23); Calcium 8.7 mg/dL (8.7-10.4); Chloride 93 mmol/L (98-107); Glucose 274 mg/dL (74-106); Lipase 126 U/L (12-53); Total Protein 5.9 g/dL (5.7-8.2)
[2024-11-06 23:14] LABS: Anion Gap 24.00001 (5-15); Carbon Dioxide < 10 mmol/L (20-31)
[2024-11-06 23:18] VITALS: BP 140/57; PULSE 99; RESP 25; O2SAT 93
[2024-11-07] VITALS (60 sets, daily range): BP systolic 34–160; BP diastolic 15–124; PULSE 48–100; RESP 18–26; TEMP 88.2–92.5; O2SAT 22–99
[2024-11-07] MEDS: NOREPINEPHRINE 8 MG/250ML KIT 250 ML IV SCH
--- NOTE | 2024-11-07 00:48 | DVH ---
CT HEAD WITHOUT CONTRAST INDICATION: found down, signs of trauma COMPARISON: None TECHNIQUE: CT of the head without intravenous contrast. RADIATION DOSE: CTDIvol: mGy, DLP: mGy*cm FINDINGS: There is no evidence of intracranial hemorrhage, infarct, extra-axial collection, mass effect, midli ne shift, herniation or hydrocephalus. Minimal chronic white matter microvascular ischemic change. T he ventricles, sulci and cisterns are age appropriate. The bledsoe-white differentiation is preserved. Visualized paranasal sinuses and mastoid air cells are clear. Soft tissues and osseous structures ar e unremarkable. IMPRESSION: No hemorrhage or other acute intracranial abnormality.
--- NOTE | 2024-11-07 01:08 | DVH ---
Exam: CT CHST AB PEL WO CON-NO IV/ORAL History: found down, signs of trauma Comparison Study: CT CT AB PEL WO CON-NO ORAL OR IV on DOS: 11/03/24 Technique: Multidetector spiral CT of the abdomen was performed from lung bases to pubic symphysis. Imaging was performed without IV contrast. Axial, coronal and sagittal multiplanar reformats were ob tained from the axial data set by the technologist. Radiation Dose : 1. Abdomen/Pelvis: CTDIvol mGy, DLP mGy*cm. Findings: Evaluation of solid organs is limited due to lack of intravenous contrast use. Lungs/Pleura: Evidence of mild subsegmental atelectasis/scarring in the lower lobes. No pulmonary inf iltrates. No pleural or pericardial effusion. Tip of the ET is just above the alex there Mediastinum: No abnormality demonstrated. No evidence of lymphadenoapthy. Liver: Liver is normal in size. No focal lesions. Gallbladder and Biliary Tree: No abnormality demonstrated. Spleen: No abnormality demonstrated. Pancreas: No abnormality demonstrated. Adrenal Glands: No abnormality demonstrated. Kidneys: No abnormality demonstrated. Bladder: Decompressed with Nogueira catheter present. Bowel: NG tube is present in the stomach. Prior gastric surgery. There are multiple considerably dila billie loops of small bowel measuring up to approximately 4 cm containing air-fluid levels consistent wi th proximal small bowel obstruction which was not present on the recent CT scan from 11/03/24. Large b owel is collapsed. Ascites: Small amount of free fluid noted adjacent to the liver. Lymphadenopathy: No evidence of lymphadenopathy. Abdominal Wall and Mesentery: Unremarkable. Vasculature: Mild atherosclerotic changes in abdominal aorta and iliac arteries without aneurysm. Pelvic Organs: Unremarkable Musculoskeletal: No bony lesions or fracture. Prominent posterior osteophyte at T5-T6 resulting in m [id number] spinal canal stenosis and compression of the spinal cord. Lumbar spondylosis with up to moderate spinal canal stenosis. IMPRESSION: Proximal small bowel obstruction. Radiation optimization: All CT scans at this facility use at least one of these dose optimization obed hniques: automated exposure control mA and/or kV adjustment per patient size (includes targeted exam s where dose is matched to clinical indication) or iterative reconstruction.
[2024-11-07] MEDS: SODIUM CHLORIDE 0.9% 1,000 ML IV ONE (01:24)
[2024-11-07] MEDS: VASOPRESSIN 20 UNIT/ML ONE (01:44)
[2024-11-07 01:50] LABS: Base Excess -24.8 mmol/L (-2.0-3.0)
[2024-11-07] MEDS: VASOPRESSIN 20 UNITS in SODIUM CHL 0.9% 99 ML IV SCH (02:00)
[2024-11-07] MEDS: CALCIUM GLUC 1,000mg/50ml-NS 50 ML IV SCH (02:06)
[2024-11-07] MEDS: SODIUM BICARB 8.4% 50Meq/50ml SYR Vial IV ONE ×2 (02:19→08:12)
[2024-11-07] MEDS: fentaNYL Drip 2500mCg/250mlNS 250 ML IV SCH (02:38)
[2024-11-07] MEDS: DEXTROSE (50%) 50ML SYRG IV ONE (02:56)
[2024-11-07] MEDS: DEXTROSE 50% SYRINGE 50 ML IV ONE (03:14)
[2024-11-07] MEDS ORDERED: VANCOMYCIN PER PHARMACY 0 MG IV SCH (03:15)
[2024-11-07] MEDS ORDERED: MORPHINE SULFATE INJ 2 MG/ml SYRG IV PRN (03:15)
[2024-11-07] MEDS ORDERED: NITROGLYCERIN 0.4 MG SL TAB SL PRN (03:15)
[2024-11-07] MEDS ORDERED: DEXTROSE (50%) 50ML SYRG IV PRN ×2 (03:15→05:45)
[2024-11-07] MEDS ORDERED: ONDANSETRON HCL 4 MG/2 ML VIAL IV PRN (03:15)
[2024-11-07] MEDS: D5W/SOD CHLO 0.9% 1,000 ML IV ONE (03:18)
[2024-11-07 03:40] LABS: Alkaline Phosphatase 100 U/L (46-116); Anion Gap 23.00001 (5-15); Bilirubin, Total 0.6 mg/dL (0.2-1.0); Calcium 8.8 mg/dL (8.7-10.4); Potassium 4.8 mmol/L (3.5-5.1)
[2024-11-07] MEDS: NOREPINEPHRINE 8 MG/250ML KIT 250 ML IV ONE (03:47)
[2024-11-07] MEDS: PHENYLEPHRINE IV 250 ML IV SCH (04:02)
[2024-11-07 04:05] LABS: Alanine Aminotransferase 105 U/L (7-40); Aspartate Aminotransferase 327 U/L (13-40); Blood Urea Nitrogen 58 mg/dL (9-23); Carbon Dioxide < 10 mmol/L (20-31); Chloride 95 mmol/L (98-107); Glucose 231 mg/dL (74-106); Lactic Acid w/Reflex 13.8 mmol/L (0.4-2.0); Sodium 128 mmol/L (136-145)
[2024-11-07] MEDS: LACTATED RINGER'S 2,000 ML IV ONE (04:07)
--- NOTE | 2024-11-07 04:22 | DVHHP2 ---
DIMA ENRIQUEZ VERIFICATION CLERK 11/07/24 0422: History of Present Illness Reason for Visit: CPR in progress History of Present Illness Information in this HPI is limited due to the patient's current critical condition. ER reported patient was found down by roommates who activated EMS. Patient was initially found having difficulty breathing with shortness of breath. When EMS encounter with the patient patient was agonal breathing with bradycardia in the 20s. Patient was treated with epinephrine then went into VFib. Patient was shocked twice pulses were regained. Upon arrival to the emergency department patient was intubated and placed on mechanical ventilation. Patient had been previously seen in the ED earlier this week with complaints of abdominal pain. Patient admitted for further evaluation management. Psych: Addictions Past Social History Unable to obtain social history due to critical condition Review of Systems Review of Systems Unable to complete review of systems due to critical condition Allergies: Coded Allergies: NO KNOWN ALLERGIES (Unverified , 07/02/15) Medications Current Medications Medications Dose Ordered Sig/Cata Route Start Time Stop Time Status Last Admin Dose Admin Midazolam HCl 50 ml @ 1 mls/hr Q24H IV 11/06/24 22:45 11/06/24 22:45 1 MLS/HR Vasopressin 20 units/Sodium Chloride 100 ml @ 9 mls/hr Q11H7M IV 11/07/24 02:00 Fentanyl Citrate 250 ml @ 2.5 mls/hr Q24H IV 11/07/24 02:00 11/07/24 02:38 2.5 MLS/HR Ondansetron HCl 4 mg Q4HP PRN IV 11/07/24 03:15 UNV Nitroglycerin 0.4 mg Q5MINP PRN SL 11/07/24 03:15 UNV Morphine Sulfate 2 mg Q30M PRN IV 11/07/24 03:15 UNV Diagnostic Test (Pha) 1 strip Q6HR 11/07/24 06:00 UNV Insulin Human Regular Q6HR SC 11/07/24 06:00 UNV Dextrose 50 ml UD PRN IV 11/07/24 03:15 UNV Vancomycin HCl 0 ml @ 0 mls/hr UD IV 11/07/24 03:15 UNV Cefepime HCl 50 ml @ 12.5 mls/hr BID IV 11/07/24 10:00 UNV Exam Vital Signs Vital Signs Date Time Temp Pulse Resp B/P (MAP) Pulse Ox O2 Delivery O2 Flow Rate FiO2 11/07/24 02:50 92.5 87 22 155/94 96 70 92.5 General Appearance: severe distress, Other (Pallor. Ill-appearing. Intubated sedated) HEENT: Atraumatic, PERRLA Respiratory: Other (Intubated on mechanical ventilation) Cardiovascular: Regular rate, Normal S1, Normal S2 Abdominal: Other (Abdomen distended. firm. Hypoactive bowel sounds) Extremities: No edema, Other (BLE mottling. BLE pulses 1+. left upper extremity deformity. ) Skin: No breakdown Neuro: Other (Sedated and intubated on mechanical ventilator) Labs/Xrays Labs Test 11/07/24 03:10 11/07/24 01:32 11/06/24 22:00 11/06/24 21:00 Range/Units Blood Gas Specimen Type Arterial Blood Gas Sample Site Right radial Blood Gas Patient Temperature 37.0 Arterial Blood Date Drawn [id number] Arterial Blood pH 6.918 *L 7.350-7.450 Arterial Blood Partial Pressure CO2 31.9 L 32.0-45.0 mmHg Arterial Blood Partial Pressure O2 118.1 H 83.0-108.0 mmHg Arterial Blood HCO3 6.4 L 21.0-28.0 mmol/L Arterial Blood Oxygen Saturation 95.2 94.0-98.0 % Arterial Blood Base Excess -24.8 L -2.0-3.0 mmol/L Arterial Blood Oxyhemoglobin 93.2 L 94.0-98.0 % Arterial Blood Carboxyhemoglobin 1.5 0.5-1.5 % Arterial Blood Methemoglobin 0.6 0.0-1.5 % Nick Test Modified Blood Gas Total Hemoglobin 9.30 L 12.0-16.0 g/dL Blood Gas Set Respiration Rate 18.0 Blood Gas Modality Vent - ac FiO2 % 70.0 Blood Gas Tidal Volume 450.0 Blood Gas PEEP or CPAP 5.0 Blood Gas Critical Value Read Back Yes Blood Gas Notified Whom michell Valverde md Blood Gas Notified Time [id number] Blood Gas Notified By bobby Marsh rrt White Blood Count 6.0 # 4.4-10.8 10^3/uL Red Blood Count 2.99 L 4.0-5.20 10^6/uL Hemoglobin 9.2 #L 12.2-16.2 g/dL Hematocrit 29.7 #L 36.0-46.0 % Mean Corpuscular Volume 99.2 # 80.0-100.0 fL Mean Corpuscular Hemoglobin 30.9 28.0-32.0 pg Mean Corpuscular Hemoglobin Concent 31.1 L 32.0-36.0 g/dL Red Cell Distribution Width 15.3 H 11.8-14.3 % Platelet Count 186 140-450 10^3/uL Mean Platelet Volume 8.3 6.9-10.8 fL Neutrophils (%) (Auto) 37.0-80.0 % Lymphocytes (%) (Auto) 10.0-50.0 % Monocytes (%) (Auto) 0.0-12.0 % Basophils (%) (Auto) 0.0-2.0 % Neutrophils # (Auto) 1.6-8.6 10 ^3/uL Lymphocytes # (Auto) 0.4-5.4 10 ^3/uL Monocytes # (Auto) 0-1.3 10 ^3/uL Differential Total Cells Counted 100.0 100 Neutrophils % (Manual) 44 37.0-80.0 Band Neutrophils % (Manual) 16 Lymphocytes % (Manual) 17 10.0-50.0 Monocytes % (Manual) 23 H 0-12 Eosinophils % (Manual) 0 0-7 Basophils % (Manual) 0 0.0-2.0 Metamyelocytes % (manual) 0 Myelocytes % (Manual) 0 Promyelocytes % (Manual) 0 Blast Cells % (Manual) 0 Nucleated Red Blood Cells 1.0 % Reactive Lymphocytes 0 Platelet Estimate Adequate Lipase 126 H 12-53 U/L B-Type Natriuretic Peptide 369.04 0-100 pg/mL Plasma/Serum Blood Alcohol < 3.0 <10 mg/dL Assessment/Plan Assessment/Plan CPR s/p ROSC Acute respiratory failure s/p intubation on mechanical ventilator Small-bowel obstruction, acute JOSELINE on CKD likely hemodynamically mediated Severe metabolic acidosis Lactic acidosis Anemia left upper extremity fracture Plan Admit ICU Pulmonology consult. Bronchodilators. Supplemental O2 to maintain O2 saturation greater than 93%. Cardiology consult. Echocardiogram. Vasopressors to maintain map greater than 65. Nephrology consult. BMP q.6 hours. Correct electrolytes as needed. Renal ultrasound. General surgeon consultation. NGT to LIS. Monitor H&H. transfuse 1 unit PRBCs for Hgb < 8. Blood cultures pending, sputum cultures pending, urine cultures pending, UA pend ing, UDS pending IVF Empiric IV ABX Blood glucose checks every hour to prevent hypoglycemia. GI PPX Protonix / dvt ppx scd. Patient condition and plan of care discussed with patient's son Jordan via telephone. States he will come by later to see the patient. Condition critical. prognosis poor. Plan discussed with: Son My Orders Orders - DIMA ENRIQUEZ NP Procedure Category Date Status Time Comprehensive LAB 11/07/24 In Process Metabolic Panel 03:08 Lactic Acid W/ Reflex LAB 11/07/24 In Process Order 03:08 Troponin-I Hs LAB 11/07/24 In Process 03:08 Admit ADMIT 11/07/24 Transmitted 03:13 Code Status CODE 11/07/24 Transmitted 03:13 Vital Signs EVA 11/07/24 In Process 03:13 Review Orders With EVA 11/07/24 In Process Adm. 03:13 Maintain Bed Rest EVA 11/07/24 In Process 03:13 Npo (Nothing By DIET 11/07/24 Transmitted Mouth) Diet Breakfast Oxygen By Face Mask RT 11/07/24 Transmitted 03:13 Notify Md Of Changes EVA 11/07/24 In Process From Base 03:13 Advance Directive EVA 11/07/24 In Process 03:13 Echo 2d Mode Cardiac US 11/07/24 Logged DOP 03:13 Basic Metabolic Panel LAB 11/07/24 Logged 05:00 Basic Metabolic Panel LAB 11/08/24 Verified 05:00 Basic Metabolic Panel LAB 11/09/24 Verified 05:00 Basic Metabolic Panel LAB 11/10/24 Verified 05:00 Basic Metabolic Panel LAB 11/11/24 Verified 05:00 Basic Metabolic Panel LAB 11/12/24 Verified 05:00 Basic Metabolic Panel LAB 11/13/24 Verified 05:00 Basic Metabolic Panel LAB 11/14/24 Verified 05:00 Urinalysis LAB 11/07/24 Logged 03:13 Complete Blood Count LAB 11/07/24 Logged 05:00 Complete Blood Count LAB 11/08/24 Verified 05:00 Complete Blood Count LAB 11/09/24 Verified 05:00 Complete Blood Count LAB 11/10/24 Verified 05:00 Complete Blood Count LAB 11/11/24 Verified 05:00 Complete Blood Count LAB 11/12/24 Verified 05:00 Complete Blood Count LAB 11/13/24 Verified 05:00 Complete Blood Count LAB 11/14/24 Verified 05:00 Blood Culture GABE 11/07/24 Logged 03:13 Patient Condition ORDERS 11/07/24 Transmitted 03:13 Allergies [facility] 11/07/24 In Process 03:13 Ondansetron Hcl PHA 11/07/24 Logged (Zofran) 03:15 Drug Screen LAB 11/07/24 Logged 03:13 Sequential EVA 11/07/24 In Process Compression Device Nitroglycerin PHA 11/07/24 Logged Sublingual (Ntrostat 03:15 Morphine Sulfate PHA 11/07/24 Logged Injection 03:15 Stat Ekg For Chest [facility] 11/07/24 In Process Pain 03:13 Notify Md Of Changes [facility] 11/07/24 In Process From Base 03:13 Pelletizer For [facility] 11/07/24 In Process 24 Hours 03:13 Emergency Dysrhythmia [facility] 11/07/24 In Process Protocol 03:13 Rhythm Strips Once [facility] 11/07/24 In Process Every Shift 03:13 Oxygen By Nasal RT 11/07/24 Transmitted Cannula 03:13 Glucose Blood PHA 11/07/24 Logged (Accu-Chek Comfort 06:00 Insulin R (Human) PHA 11/07/24 Logged (Insulin R) 06:00 Dextrose 50% Syringe PHA 11/07/24 Logged 03:15 Communication Order ORDERS 11/07/24 Transmitted 03:13 *Consult CONS 11/07/24 Transmitted / 03:13 * Surgical Consult CONS 11/07/24 Transmitted * Cardiology Consult CONS 11/07/24 Transmitted 03:13 *[facility] CONS 11/07/24 Transmitted -[place] 03:13 Communication Order ORDERS 11/07/24 Transmitted 03:13 Strict I & O EVA 11/07/24 In Process 03:13 Vancomycin Per PHA 11/07/24 Logged Pharmacy 03:15 Cefepime 1gm/ 50ml PHA 11/07/24 Logged (Maxipime 1gm/50ml) 10:00 Basic Metabolic Panel LAB 11/07/24 Logged 12:00 Basic Metabolic Panel LAB 11/07/24 Logged 18:00 Basic Metabolic Panel LAB 11/08/24 Verified 00:00 Basic Metabolic Panel LAB 11/08/24 Verified 06:00 Communication Order ORDERS 11/07/24 Transmitted 03:13 Date of Service: Nov 07, 2024 Billing Provider: MIGUEL COYNE MD Common Visit Codes: NOT BILLABLE MIGUEL COYNE MD 11/07/24 1228: Review of Systems Allergies: Coded Allergies: NO KNOWN ALLERGIES (Unverified , 07/02/15) Additional Comments Additional Comments Additional Comments PATIENT WAS SEEN AND EVALUATED BY ME AT BEDSIDE EARLIER, TALKED TO THE SON AND OBTAIN HISTORY. 63-YEAR-OLD FEMALE WHO WAS BROUGHT IN BY [facility] FROM A [facility] SHE WAS FOUND TO HAVE SHORTNESS OF BREATH AND AGONAL BREATHING, BRADYCARDIA IN 20S, HYPOGLYCEMIA WITH A BLOOD SUGAR OF 26, STATUS POST EPINEPHRINE INJECTION, PATIENT WENT INTO VFIB STATUS POST SHOCK, CPR WAS IN PROGRESS WHICH WAS LATER ON DISCONTINUED, PATIENT'S WAS BROUGHT TO ER ON AMBU BAG, STATUS POST INTUBATION IN THE ER. PATIENT IS CURRENTLY ON MULTIPLE VASOPRESSORS, WITH A UNDER RECORD NUMBER BLOOD PRESSURE. TALKED TO SON AT BEDSIDE WHO REQUESTING PATIENT TO BE DNR BUT CONTINUE BUT WE ARE DOING. 1. ACUTE HYPOXIC RESPIRATORY FAILURE STATUS POST INTUBATION, CURRENTLY ON MECHANICAL VENTILATION 2. CARDIAC ARREST STATUS POST CPR WITH ROSC 3. ACUTE METABOLIC ENCEPHALOPATHY 4. HYPOTENSION REQUIRING MULTIPLE VASOPRESSORS 5. ACUTE KIDNEY INJURY 6. METABOLIC ACIDOSIS CURRENTLY ON BICARB DRIP 7. LACTIC ACIDOSIS 8. HYPOGLYCEMIA STATUS POST D50 INJECTION, STATUS POST D5W IV FLUIDS 9. ANEMIA WITHOUT ANY ACTIVE EVIDENCE OF BLEED 10. SMALL-BOWEL OBSTRUCTION 11. OLD NONUNION TITRATED LEFT UPPER EXTREMITY FRACTURE -PATIENT IS CRITICAL, PROGNOSIS REMAINS VERY POOR, TALKED TO SON AT BEDSIDE WHO REQUESTING THE PATIENT TO BE DNR. -CONTINUE CURRENT VASOPRESSORS, DO NOT ADD MORE, CONTINUE EMPIRICAL ANTIBIOTICS, CONTINUE VENT SUPPORT -WE WILL CONSULT PULMONARY CARDIOLOGY NEPHROLOGY. -PATIENT'S SON WAS UPDATED REGARDING CURRENT PLAN OF CARE WHO UNDERSTAND VERBALIZED THE UNDERSTANDING AND AGREEABLE TO PLAN. DIMA ENRIQUEZ NP Nov 07, 2024 04:22 MIGUEL COYNE MD Nov 07, 2024 12:28
[2024-11-07] MEDS: PHENYLEPHRINE IV 250 ML IV ONE (04:24)
[2024-11-07] MEDS: SODIUM BICARB 50mEq/50ml Vial 100 ML in SOD CHL 0.45% 1,000 ML IV SCH (04:30)
[2024-11-07 04:39] LABS: Mean Corpuscular Hemoglobin 30.8 pg (28.0-32.0)
[2024-11-07 04:41] LABS: Mean Corpuscular Hgb Conc. 30.5 g/dL (32.0-36.0); Mean Corpuscular Volume 100.9 fL (80.0-100.0); Platelet Count (auto) 173 10^3/uL (140-450); Red Blood Cells 2.28 10^6/uL (4.0-5.20); Red Cell Distribution Width 15.6 % (11.8-14.3); White Blood Cell 2.1 10^3/uL (4.4-10.8)
[2024-11-07 04:46] LABS: Basophils % (manual) 0 (0.0-2.0); Blast Cells 0; Metamyelocytes % 0; Myelocytes % 0; Promyelocytes % 0; Reactive Lymphocytes 0
[2024-11-07 04:55] LABS: Chloride 100 mmol/L (98-107); Potassium 4.9 mmol/L (3.5-5.1)
[2024-11-07 04:56] LABS: Anion Gap 23.00001 (5-15)
[2024-11-07] MEDS: SODIUM BICARB 8.4% 50Meq/50ml SYR INJ ONE (04:58)
[2024-11-07 05:01] LABS: BUN/Creatinine Ratio 17.5 (10.0-20.0); Glucose 97 mg/dL (74-106)
[2024-11-07 05:04] LABS: Sodium 133 mmol/L (136-145)
[2024-11-07 05:06] LABS: Blood Urea Nitrogen 53 mg/dL (9-23); Calcium 8.2 mg/dL (8.7-10.4); Carbon Dioxide < 10 mmol/L (20-31)
[2024-11-07 05:27] LABS: Band Neutrophils % (manual) 3; Eosinophils % (manual) 1 (0-7); Lymphocytes % (manual) 56 (10.0-50.0); Monocytes % (manual) 2 (0-12); Platelet Estimate Adequate
[2024-11-07] MEDS: ACCU-CHEK COMFORT CURVE STRIP VI SCH ×2 (05:41→05:54)
[2024-11-07] MEDS: InsuLIN REG 1unit/0.01ml Soln (100units/ml) SC SCH (05:53)
[2024-11-07 06:25] LABS: Base Excess -22.9 mmol/L (-2.0-3.0)
[2024-11-07] MEDS ORDERED: DOPamine 1600MCG/ML D5W 250 ML IV SCH (09:00)
[2024-11-07] MEDS ORDERED: EPINEPHrine HCL 250 ML IV SCH (09:00)
[2024-11-07 09:40] LABS: Base Excess -21.9 mmol/L (-2.0-3.0)
--- NOTE | 2024-11-07 09:55 | DVHINCON2 ---
Date of service: Nov 07, 2024 Referring Physician Yousuf Woods, nurse practitioner Reason for Consultation Acute kidney injury History of Present Illness Patient is a 63-year-old female with unknown past medical history was brought in from a retirement s/p cardiopulmonary arrest. Patient intubated on ventilator on admission patient found to have elevated BUN creatinine nephrology is consulted for acute kidney injury Past Medical History Unknown Past Surgical History Unknown Allergies: Coded Allergies: NO KNOWN ALLERGIES (Unverified , 07/02/15) Home Meds Active Scripts Ondansetron Odt 4MG Tab (ZOFRAN PO) 4 Mg Tb, 4 MG PO TID PRN for 4 Days, #12 TAB ODT TAB-DISSOLVE IN MOUTH, THEN SWALLOW Prov:CEE MA MD 11/05/24 Hydrocodone-Acetaminophen (Hydrocodone Bitartrate/AC 5-325 mg) 1 Tab Tab, 1 TAB PO Q6HP PRN for 3 Days, #12 TAB Prov:SAMIR MATHEW MD 07/15/23 Naproxen Sodium (Naproxen) 220 Mg Tab, 220 MG PO BID for 7 Days, #14 TAB Prov:SAMIR MATHEW MD 07/15/23 Current Medications Current Medications Medications (Trade) Dose Ordered Sig/Cata Route PRN Reason Start Time Stop Time Status Last Admin Propofol 100 ml @ 1.854 mls/ hr Q24H IV 11/06/24 22:00 11/06/24 22:47 DC Midazolam HCl 50 ml @ 1 mls/hr Q24H IV 11/06/24 22:45 11/07/24 05:56 Calcium Gluconate/ Sodium Chloride 50 ml @ 100 mls/hr Q30M IV 11/07/24 01:45 11/07/24 02:44 DC 11/07/24 02:44 Vasopressin 20 units/Sodium Chloride 100 ml @ 9 mls/hr Q11H7M IV 11/07/24 02:00 11/07/24 02:00 Fentanyl Citrate 250 ml @ 2.5 mls/hr Q24H IV 11/07/24 02:00 11/07/24 02:38 Ondansetron HCl (Zofran) 4 mg Q4HP PRN IV NAUSEA / VOMITING 11/07/24 03:15 Hold Nitroglycerin (Ntrostat Sublingual) 0.4 mg Q5MINP PRN SL FOR CHEST PAIN 11/07/24 03:15 Morphine Sulfate 2 mg Q30M PRN IV FOR CHEST PAIN 11/07/24 03:15 Diagnostic Test (Pha) (Accu-Chek Comfort Curve T) 1 strip Q6HR 11/07/24 06:00 11/07/24 05:54 Insulin Human Regular (InsuLIN R) Q6HR SC 11/07/24 06:00 Dextrose 50 ml UD PRN IV Blood Sugar LESS THAN 60 11/07/24 03:15 Vancomycin HCl 0 ml @ 0 mls/hr UD IV 11/07/24 03:15 UNV Cefepime HCl 50 ml @ 12.5 mls/hr DAILY@2200 IV 11/07/24 22:00 Phenylephrine HCl 250 ml @ 30 mls/hr Q8H20M IV 11/07/24 04:02 11/07/24 04:02 Norepinephrine Bitartrate 250 ml @ 3.75 mls/hr Q24H IV 11/07/24 00:00 11/07/24 00:00 Sodium Bicarbonate 100 ml/Sodium Chloride 1,100 ml @ 125 mls/hr Q8H48M IV 11/07/24 04:30 11/07/24 04:30 Diagnostic Test (Pha) (Accu-Chek Comfort Curve T) 1 strip Q1H 11/07/24 05:45 11/07/24 09:49 Dextrose 50 ml UD PRN IV BLOOD SUGAR LESS THAN 70 11/07/24 05:45 Dopamine HCl/ Dextrose 250 ml @ 11.588 mls/ hr [id number] IV 11/07/24 09:00 UNV Epinephrine HCl 250 ml @ 7.5 mls/hr Q24H IV 11/07/24 09:00 UNV Family History: Alcoholism G8 MOTHER G8 FATHER Family history: Depression (situation) G8 MOTHER Review of Systems Can not be obtained H&P Exam Vital Signs/I&O Vital Sign Date Time Temp Pulse Resp B/P (MAP) Pulse Ox O2 Delivery O2 Flow Rate FiO2 11/07/24 09:45 87 26 160/58 (92) 90 11/07/24 08:00 91 Mechanical Ventilator+ 11/07/24 07:44 88.9 88.9 Intake and Output 11/06/24 11/07/24 19:00 07:00 Intake Total 4025 ml Balance 4025 ml Intake IV Total 3725 ml Other 300 ml Physical Exam Patient intubated on ventilator Lungs clear to auscultation bilaterally Cardiac exam regular rate and rhythm GI bowel sounds are present Nogueira catheter Extremities no edema Neuro patient is sedated Labs/Diagnostic Data Labs/Diagnostic Data Laboratory Tests Test 11/07/24 09:31 11/07/24 08:51 11/07/24 07:12 11/07/24 06:20 Range/Units Blood Gas Specimen Type Arterial Arterial Blood Gas Sample Site Left radial Left radial Blood Gas Patient Temperature 37.0 37.0 Arterial Blood Date Drawn [id number] Arterial Blood pH 7.001 *L 6.970 *L 7.350-7.450 Arterial Blood Partial Pressure CO2 30.0 L 31.1 L 32.0-45.0 mmHg Arterial Blood Partial Pressure O2 52.4 *L 113.1 H 83.0-108.0 mmHg Arterial Blood HCO3 7.2 L 7.0 L 21.0-28.0 mmol/L Arterial Blood Oxygen Saturation 70.0 *L 95.7 94.0-98.0 % Arterial Blood Base Excess -21.9 L -22.9 L -2.0-3.0 mmol/L Arterial Blood Oxyhemoglobin 65.4 L 90.3 L 94.0-98.0 % Arterial Blood Carboxyhemoglobin 6.5 H 5.6 H 0.5-1.5 % Arterial Blood Methemoglobin 0.1 0.0 0.0-1.5 % Nick Test Modified Modified Blood Gas Total Hemoglobin 5.10 *L 6.90 *L 12.0-16.0 g/dL Blood Gas Set Respiration Rate 26.0 20.0 Blood Gas Modality Vent - ac Vent - ac FiO2 % 70.0 100.0 Blood Gas Tidal Volume 500.0 450.0 Blood Gas PEEP or CPAP 5.0 5.0 Blood Gas Critical Value Read Back Yes yes Blood Gas Notified Whom dani woods np Blood Gas Notified Time [id number] Blood Gas Notified By Long Term Care Social Worker jeanine siegel Long Term Care Social Worker jeanine siegel POC Glucose 63 L 123 H 70-106 mg/dl Test 11/07/24 04:40 11/07/24 04:30 11/07/24 03:10 11/07/24 01:32 Range/Units POC Glucose 101 70-106 mg/dl White Blood Count 2.1 L 4.4-10.8 10^3/uL Red Blood Count 2.28 L 4.0-5.20 10^6/uL Hemoglobin 7.0 #*L 12.2-16.2 g/dL Hematocrit 23.0 #L 36.0-46.0 % Mean Corpuscular Volume 100.9 H 80.0-100.0 fL Mean Corpuscular Hemoglobin 30.8 28.0-32.0 pg Mean Corpuscular Hemoglobin Concent 30.5 L 32.0-36.0 g/dL Red Cell Distribution Width 15.6 H 11.8-14.3 % Platelet Count 173 140-450 10^3/uL Mean Platelet Volume 7.6 6.9-10.8 fL Neutrophils (%) (Auto) 37.0-80.0 % Lymphocytes (%) (Auto) 10.0-50.0 % Monocytes (%) (Auto) 0.0-12.0 % Basophils (%) (Auto) 0.0-2.0 % Neutrophils # (Auto) 1.6-8.6 10 ^3/uL Lymphocytes # (Auto) 0.4-5.4 10 ^3/uL Monocytes # (Auto) 0-1.3 10 ^3/uL Differential Total Cells Counted 100.0 100 Neutrophils % (Manual) 38 37.0-80.0 Band Neutrophils % (Manual) 3 Lymphocytes % (Manual) 56 H 10.0-50.0 Monocytes % (Manual) 2 0-12 Eosinophils % (Manual) 1 0-7 Basophils % (Manual) 0 0.0-2.0 Metamyelocytes % (manual) 0 Myelocytes % (Manual) 0 Promyelocytes % (Manual) 0 Blast Cells % (Manual) 0 Reactive Lymphocytes 0 Platelet Estimate Adequate Suzy Cells Many Sodium Level 133 #L 128 L 136-145 mmol/L Potassium Level 4.9 4.8 3.5-5.1 mmol/L Chloride Level 100 95 L 98-107 mmol/L Carbon Dioxide Level < 10 *L < 10 *L 20-31 mmol/L Anion Gap 23.65002 H 23.94876 H 5-15 Blood Urea Nitrogen 53 H 58 H 9-23 mg/dL Creatinine 3.03 H 3.22 H 0.550-1.02 mg/dL Glomerular Filtration Rate Calc 17 15 >90 mL/min BUN/Creatinine Ratio 17.5 18.0 10.0-20.0 Serum Glucose 97 231 H 74-106 mg/dL Lactic Acid Level 14.7 *H 13.8 *H 0.4-2.0 mmol/L Calcium Level 8.2 L 8.8 8.7-10.4 mg/dL Total Bilirubin 0.6 0.2-1.0 mg/dL Aspartate Amino Transferase (AST) 327 H 13-40 U/L Alanine Aminotransferase (ALT) 105 H 7-40 U/L Alkaline Phosphatase 100 46-116 U/L Troponin I High Sensitivity 49 *H </=34 ng/L Total Protein 5.0 L 5.7-8.2 g/dL Albumin 3.0 L 3.2-4.8 g/dL Blood Gas Specimen Type Arterial Blood Gas Sample Site Right radial Blood Gas Patient Temperature 37.0 Arterial Blood Date Drawn [id number] Arterial Blood pH 6.918 *L 7.350-7.450 Arterial Blood Partial Pressure CO2 31.9 L 32.0-45.0 mmHg Arterial Blood Partial Pressure O2 118.1 H 83.0-108.0 mmHg Arterial Blood HCO3 6.4 L 21.0-28.0 mmol/L Arterial Blood Oxygen Saturation 95.2 94.0-98.0 % Arterial Blood Base Excess -24.8 L -2.0-3.0 mmol/L Arterial Blood Oxyhemoglobin 93.2 L 94.0-98.0 % Arterial Blood Carboxyhemoglobin 1.5 0.5-1.5 % Arterial Blood Methemoglobin 0.6 0.0-1.5 % Nick Test Modified Blood Gas Total Hemoglobin 9.30 L 12.0-16.0 g/dL Blood Gas Set Respiration Rate 18.0 Blood Gas Modality Vent - ac FiO2 % 70.0 Blood Gas Tidal Volume 450.0 Blood Gas PEEP or CPAP 5.0 Blood Gas Critical Value Read Back Yes Blood Gas Notified Whom michell Ma md Blood Gas Notified Time [id number] Blood Gas Notified By bobby Marsh rrt Test 11/07/24 00:10 11/06/24 23:00 11/06/24 22:00 11/06/24 21:00 Range/Units Troponin I High Sensitivity 31 22 11 </=34 ng/L Lactic Acid Level 13.7 *H 13.6 *H 0.4-2.0 mmol/L White Blood Count 6.0 # 4.4-10.8 10^3/uL Red Blood Count 2.99 L 4.0-5.20 10^6/uL Hemoglobin 9.2 #L 12.2-16.2 g/dL Hematocrit 29.7 #L 36.0-46.0 % Mean Corpuscular Volume 99.2 # 80.0-100.0 fL Mean Corpuscular Hemoglobin 30.9 28.0-32.0 pg Mean Corpuscular Hemoglobin Concent 31.1 L 32.0-36.0 g/dL Red Cell Distribution Width 15.3 H 11.8-14.3 % Platelet Count 186 140-450 10^3/uL Mean Platelet Volume 8.3 6.9-10.8 fL Neutrophils (%) (Auto) 37.0-80.0 % Lymphocytes (%) (Auto) 10.0-50.0 % Monocytes (%) (Auto) 0.0-12.0 % Basophils (%) (Auto) 0.0-2.0 % Neutrophils # (Auto) 1.6-8.6 10 ^3/uL Lymphocytes # (Auto) 0.4-5.4 10 ^3/uL Monocytes # (Auto) 0-1.3 10 ^3/uL Differential Total Cells Counted 100.0 100 Neutrophils % (Manual) 44 37.0-80.0 Band Neutrophils % (Manual) 16 Lymphocytes % (Manual) 17 10.0-50.0 Monocytes % (Manual) 23 H 0-12 Eosinophils % (Manual) 0 0-7 Basophils % (Manual) 0 0.0-2.0 Metamyelocytes % (manual) 0 Myelocytes % (Manual) 0 Promyelocytes % (Manual) 0 Blast Cells % (Manual) 0 Nucleated Red Blood Cells 1.0 % Reactive Lymphocytes 0 Platelet Estimate Adequate Sodium Level 127 L 136-145 mmol/L Potassium Level 4.5 3.5-5.1 mmol/L Chloride Level 93 L 98-107 mmol/L Carbon Dioxide Level < 10 *L 20-31 mmol/L Anion Gap 24.02462 H 5-15 Blood Urea Nitrogen 61 #H 9-23 mg/dL Creatinine 3.18 #H 0.550-1.02 mg/dL Glomerular Filtration Rate Calc 16 >90 mL/min BUN/Creatinine Ratio 19.2 10.0-20.0 Serum Glucose 274 H 74-106 mg/dL Calcium Level 8.7 8.7-10.4 mg/dL Total Bilirubin 0.6 0.2-1.0 mg/dL Aspartate Amino Transferase (AST) 195 H 13-40 U/L Alanine Aminotransferase (ALT) 78 H 7-40 U/L Alkaline Phosphatase 83 46-116 U/L Total Protein 5.9 5.7-8.2 g/dL Albumin 3.5 3.2-4.8 g/dL Lipase 126 H 12-53 U/L B-Type Natriuretic Peptide 369.04 0-100 pg/mL Plasma/Serum Blood Alcohol < 3.0 <10 mg/dL Assessment Acute kidney injury secondary to hemodynamic mediated Acute respiratory failure, intubated on ventilator Status post cardiac arrest Septic shock Small-bowel obstruction Metabolic acidosis Dropping hemoglobin GI bleeding Recommendations Closely monitor fluid and electrolytes Avoid nephrotoxic medications Nogueira catheter Strict I&Os IV fluid hydration with bicarb Packed red blood cell transfusion p.r.n. IV antibiotic Surgery consult Check urinalysis urine lytes and urine protein excretion Kidneys reported within normal limit on CT scan We will continue to follow Patient seen and examined by myself in the ER. I discussed my plan of care with the primary nurse at the bedside I would like thank Yousuf for the consult, will follow up Plan discussed with: Other (Nurse) SINA PORTER MD Nov 07, 2024 09:55
[2024-11-07] MEDS ORDERED: SODIUM BICARB 50mEq/50ml Vial 50 ML in SOD CHL 0.45% 1,000 ML IV SCH (10:00)
[2024-11-07 10:48] LABS: Phosphorus 12.9 mg/dL (2.4-5.1)
[2024-11-07 10:58] LABS: Magnesium 7.1 mg/dL (1.6-2.6)
--- NOTE | 2024-11-07 12:00 | DVHSR ---
APPROVED REPORT EXAM: LIMITED Two-dimensional and M-mode echocardiogram with Doppler and color Doppler. Blood Pressure: 82/41 mmHg INDICATION CPR s/p ROSC RISK FACTORS Height: 5' 3", Weight: 136 DIMENSIONS LVDd3.8 (3.8-5.7cm)LA (2D)3.7 (1.9-4.0cm)Aortic Root3.1 (2.0-3.7cm) LVDs3.7 (2.5-4.0cm)LA (MM) (1.9-4.0cm)Aortic Cusp Exc1.3 (1.5-2.0cm) EF (%) 2.0 (55-70%)Rt. Atrium3.7 (1.9-4.0cm)Asc. Aorta cm IVSd0.8 (0.7-1.1cm)RV (D) (1.8-2.4cm) PWd0.6 (0.7-1.1cm) Mitral Valve MitralMitral Stenosis E wave0.40m/sMV Mean GR.mmHg E/A ratio0.02D MVAcm2 Aortic Valve Aortic ValveAortic Stenosis V10.40m/John Mean GR.1mmHg V20.70m/John Peak GR.2mmHg LVOT Diameter1.9 (1.8-2.4cm)Doppler AVA1.62cm2 Other Information Quality : Technically LimitedRhythm : Technically limited study due to on vent. Conclusion lvef <10% with global dysfunction RV dysfunction limited study left atrium enlarged valves not well assessed trivial pericardial effusion noted
--- NOTE | 2024-11-07 12:29 | DVHDS2 ---
Summary Date of Admission Nov 07, 2024 at 03:13 Date and Time of Expiration: Nov 07, 2024 11:00 Labs/Diagnostic Data: Laboratory Results Test 11/07/24 09:51 11/07/24 09:46 11/07/24 09:31 11/07/24 04:30 Phosphorus Level 12.9 mg/dL (2.4-5.1) Magnesium Level 7.1 mg/dL (1.6-2.6) POC Glucose 13 mg/dl (70-106) Blood Gas Specimen Type Arterial Blood Gas Sample Site Left radial Blood Gas Patient Temperature 37.0 Arterial Blood Date Drawn [id number] Arterial Blood pH 7.001 (7.350-7.450) Arterial Blood Partial Pressure CO2 30.0 mmHg (32.0-45.0) Arterial Blood Partial Pressure O2 52.4 mmHg (83.0-108.0) Arterial Blood HCO3 7.2 mmol/L (21.0-28.0) Arterial Blood Oxygen Saturation 70.0 % (94.0-98.0) Arterial Blood Base Excess -21.9 mmol/L (-2.0-3.0) Arterial Blood Oxyhemoglobin 65.4 % (94.0-98.0) Arterial Blood Carboxyhemoglobin 6.5 % (0.5-1.5) Arterial Blood Methemoglobin 0.1 % (0.0-1.5) Nick Test Modified Blood Gas Total Hemoglobin 5.10 g/dL (12.0-16.0) Blood Gas Set Respiration Rate 26.0 Blood Gas Modality Vent - ac FiO2 % 70.0 Blood Gas Tidal Volume 500.0 Blood Gas PEEP or CPAP 5.0 Blood Gas Critical Value Read Back Yes Blood Gas Notified Whom dani freedman md Blood Gas Notified Time [id number] Blood Gas Notified By Workers' Compensation Claims Examiner jeanine siegel White Blood Count 2.1 10^3/uL (4.4-10.8) Red Blood Count 2.28 10^6/uL (4.0-5.20) Hemoglobin 7.0 g/dL (12.2-16.2) Hematocrit 23.0 % (36.0-46.0) Mean Corpuscular Volume 100.9 fL (80.0-100.0) Mean Corpuscular Hemoglobin 30.8 pg (28.0-32.0) Mean Corpuscular Hemoglobin Concent 30.5 g/dL (32.0-36.0) Red Cell Distribution Width 15.6 % (11.8-14.3) Platelet Count 173 10^3/uL (140-450) Mean Platelet Volume 7.6 fL (6.9-10.8) Neutrophils (%) (Auto) % (37.0-80.0) Lymphocytes (%) (Auto) % (10.0-50.0) Monocytes (%) (Auto) % (0.0-12.0) Basophils (%) (Auto) % (0.0-2.0) Neutrophils # (Auto) 10 ^3/uL (1.6-8.6) Lymphocytes # (Auto) 10 ^3/uL (0.4-5.4) Monocytes # (Auto) 10 ^3/uL (0-1.3) Differential Total Cells Counted 100.0 (100) Neutrophils % (Manual) 38 (37.0-80.0) Band Neutrophils % (Manual) 3 Lymphocytes % (Manual) 56 (10.0-50.0) Monocytes % (Manual) 2 (0-12) Eosinophils % (Manual) 1 (0-7) Basophils % (Manual) 0 (0.0-2.0) Metamyelocytes % (manual) 0 Myelocytes % (Manual) 0 Promyelocytes % (Manual) 0 Blast Cells % (Manual) 0 Reactive Lymphocytes 0 Platelet Estimate Adequate Filion Cells Many Sodium Level 133 mmol/L (136-145) Potassium Level 4.9 mmol/L (3.5-5.1) Chloride Level 100 mmol/L (98-107) Carbon Dioxide Level < 10 mmol/L (20-31) Anion Gap 23.30261 (5-15) Blood Urea Nitrogen 53 mg/dL (9-23) Creatinine 3.03 mg/dL (0.550-1.02) Glomerular Filtration Rate Calc 17 mL/min (>90) BUN/Creatinine Ratio 17.5 (10.0-20.0) Serum Glucose 97 mg/dL (74-106) Lactic Acid Level 14.7 mmol/L (0.4-2.0) Calcium Level 8.2 mg/dL (8.7-10.4) Test 11/07/24 03:10 11/06/24 22:00 11/06/24 21:00 Total Bilirubin 0.6 mg/dL (0.2-1.0) Aspartate Amino Transferase (AST) 327 U/L (13-40) Alanine Aminotransferase (ALT) 105 U/L (7-40) Alkaline Phosphatase 100 U/L (46-116) Troponin I High Sensitivity 49 ng/L (</=34) Total Protein 5.0 g/dL (5.7-8.2) Albumin 3.0 g/dL (3.2-4.8) Nucleated Red Blood Cells 1.0 % Lipase 126 U/L (12-53) B-Type Natriuretic Peptide 369.04 pg/mL (0-100) Plasma/Serum Blood Alcohol < 3.0 mg/dL (<10) Other Laboratory Tests 11/07/24 04:30 Brief Hx & Hospital Course: 63-year-old female who was brought in by paramedics from a [facility] as she was not agonal breathing patient was found to have bradycardia in 20s as well as hypoglycemia with blood sugar of 26. Patient was found to have cardiac arrest status post CPR with return of spontaneous circulation Patient did receive epinephrine injection and then went into VFib status post cardioversion by the paramedics. Patient was eventually intubated in the ER. Patient was on mechanical ventilation. Patient was found to have cardiogenic shock and hypotension requiring multiple vasopressors. Patient went into multiorgan failure. Son was at bedside who requested DNR and comfort measures. Patient eventually . Final Diagnosis/Problems List 1. Acute hypoxic respiratory failure 2. Cardiogenic shock 3. Multi organ failure Discharge Disposition: at [facility] MIGUEL COYNE MD Nov 07, 2024 12:29
--- NOTE | 2024-11-07 14:04 | DVHINCON2 ---
Date of service: Nov 07, [address] Bryant/VALENTINA Woodard Reason for Consultation Vent management History of Present Illness A 63 year old woman with unknown past medical history, who presented to ER via EMS on 11/06 due to CPR. Per EMS, patient was picked up at a [facility], with an initial call of shortness of breath, Upon arrival, noted patient to be laying in bed w/ agonal breathing, bradycardic at 20's. Patient was given epinephrine, went into VFIB, and was shocked twice while en route to the ER. Pulses were regained. Chest compression discontinued, and ambu bagging was continued. Fluids given. Blood sugar on scene was 26. Of note, patient was seen here on 11/05 for abdominal pain and was diagnosed with gastritis, discharged after improvement with medications yesterday. Patient was admitted for further care and pulmonary consultation is requested for evaluation and management due to the above findings. Review of Systems: Unable to be obtained d/t intubated status Past Medical History: Unknown Past Surgical History: Unknown Medications: Unknown Allergies: Unknown Family History: Unable to obtain Social History: Unable to obtain. Family History: Alcoholism G8 MOTHER G8 FATHER Family history: Depression (situation) G8 MOTHER Allergies: Coded Allergies: NO KNOWN ALLERGIES (Unverified , 07/02/15) Home Meds Active Scripts Ondansetron Odt 4MG Tab (ZOFRAN PO) 4 Mg Tb, 4 MG PO TID PRN for 4 Days, #12 TAB ODT TAB-DISSOLVE IN MOUTH, THEN SWALLOW Prov:CEE MA MD 11/05/24 Hydrocodone-Acetaminophen (Hydrocodone Bitartrate/AC 5-325 mg) 1 Tab Tab, 1 TAB PO Q6HP PRN for 3 Days, #12 TAB Prov:SAMIR MATHEW MD 07/15/23 Naproxen Sodium (Naproxen) 220 Mg Tab, 220 MG PO BID for 7 Days, #14 TAB Prov:SAMIR MATHEW MD 07/15/23 Current Medications Current Medications Medications (Trade) Dose Ordered Sig/Cata Route PRN Reason Start Time Stop Time Status Last Admin Propofol 100 ml @ 1.854 mls/ hr Q24H IV 11/06/24 22:00 11/06/24 22:47 DC Midazolam HCl 50 ml @ 1 mls/hr Q24H IV 11/06/24 22:45 11/07/24 05:56 Calcium Gluconate/ Sodium Chloride 50 ml @ 100 mls/hr Q30M IV 11/07/24 01:45 11/07/24 02:44 DC 11/07/24 02:44 Vasopressin 20 units/Sodium Chloride 100 ml @ 9 mls/hr Q11H7M IV 11/07/24 02:00 11/07/24 02:00 Fentanyl Citrate 250 ml @ 2.5 mls/hr Q24H IV 11/07/24 02:00 11/07/24 02:38 Ondansetron HCl (Zofran) 4 mg Q4HP PRN IV NAUSEA / VOMITING 11/07/24 03:15 Hold Nitroglycerin (Ntrostat Sublingual) 0.4 mg Q5MINP PRN SL FOR CHEST PAIN 11/07/24 03:15 Morphine Sulfate 2 mg Q30M PRN IV FOR CHEST PAIN 11/07/24 03:15 Diagnostic Test (Pha) (Accu-Chek Comfort Curve T) 1 strip Q6HR 11/07/24 06:00 11/07/24 05:54 Insulin Human Regular (InsuLIN R) Q6HR SC 11/07/24 06:00 Dextrose 50 ml UD PRN IV Blood Sugar LESS THAN 60 11/07/24 03:15 11/07/24 09:54 DC Vancomycin HCl 0 ml @ 0 mls/hr UD IV 11/07/24 03:15 Cefepime HCl 50 ml @ 12.5 mls/hr DAILY@2200 IV 11/07/24 22:00 Phenylephrine HCl 250 ml @ 30 mls/hr Q8H20M IV 11/07/24 04:02 11/07/24 04:02 Norepinephrine Bitartrate 250 ml @ 3.75 mls/hr Q24H IV 11/07/24 00:00 11/07/24 00:00 Sodium Bicarbonate 100 ml/Sodium Chloride 1,100 ml @ 125 mls/hr Q8H48M IV 11/07/24 04:30 11/07/24 10:13 DC 11/07/24 04:30 Diagnostic Test (Pha) (Accu-Chek Comfort Curve T) 1 strip Q1H 11/07/24 05:45 11/07/24 09:55 DC 11/07/24 09:49 Dextrose 50 ml UD PRN IV BLOOD SUGAR LESS THAN 70 11/07/24 05:45 Dopamine HCl/ Dextrose 250 ml @ 11.588 mls/ hr [id number] IV 11/07/24 09:00 Epinephrine HCl 250 ml @ 7.5 mls/hr Q24H IV 11/07/24 09:00 Sodium Bicarbonate 50 ml/ Sodium Chloride 1,050 ml @ 100 mls/hr [id number] IV 11/07/24 10:00 Vital Signs Vital Signs Date Time Temp Pulse Resp B/P (MAP) Pulse Ox O2 Delivery O2 Flow Rate FiO2 11/07/24 10:55 88.2 48 80 88.2 11/07/24 10:12 26 Mechanical Ventilator+ 70 70 Physical Exam Gen.: Patient lying in bed in medical ICU. Sedated, intubated on mechanical ventilator. Head: Normocephalic, atraumatic. Eyes: PERRLA. Ears: Normal external anatomy. Throat: Endotracheal tube and orogastric tube in place. Neck: Supple, trachea midline. Chest: Transmitted breath sounds bilaterally. Decreased air entry bilaterally. No wheezing. Bibasilar crackles. Cardiovascular: Positive S1, positive S2. Regular rate and rhythm. Abdomen: Positive bowel sounds in all 4 quadrants. Soft, nontender, nondistended. : Nogueira in place. Normal external genitalia. Rectal: Deferred. Skin: Warm, dry. Intact. Extremities: 2+ radial pulses bilaterally. No lower extremity edema. Neuro: Sedated. Labs/Diagnostic Data Labs Test 11/07/24 09:51 11/07/24 09:46 11/07/24 09:31 11/07/24 04:30 Range/Units Phosphorus Level 12.9 H 2.4-5.1 mg/dL Magnesium Level 7.1 *H 1.6-2.6 mg/dL POC Glucose 13 *L 70-106 mg/dl Blood Gas Specimen Type Arterial Blood Gas Sample Site Left radial Blood Gas Patient Temperature 37.0 Arterial Blood Date Drawn [id number] Arterial Blood pH 7.001 *L 7.350-7.450 Arterial Blood Partial Pressure CO2 30.0 L 32.0-45.0 mmHg Arterial Blood Partial Pressure O2 52.4 *L 83.0-108.0 mmHg Arterial Blood HCO3 7.2 L 21.0-28.0 mmol/L Arterial Blood Oxygen Saturation 70.0 *L 94.0-98.0 % Arterial Blood Base Excess -21.9 L -2.0-3.0 mmol/L Arterial Blood Oxyhemoglobin 65.4 L 94.0-98.0 % Arterial Blood Carboxyhemoglobin 6.5 H 0.5-1.5 % Arterial Blood Methemoglobin 0.1 0.0-1.5 % Nick Test Modified Blood Gas Total Hemoglobin 5.10 *L 12.0-16.0 g/dL Blood Gas Set Respiration Rate 26.0 Blood Gas Modality Vent - ac FiO2 % 70.0 Blood Gas Tidal Volume 500.0 Blood Gas PEEP or CPAP 5.0 Blood Gas Critical Value Read Back Yes Blood Gas Notified Whom dani freedman md Blood Gas Notified Time [id number] Blood Gas Notified By Canary Breeder jeanine siegel White Blood Count 2.1 L 4.4-10.8 10^3/uL Red Blood Count 2.28 L 4.0-5.20 10^6/uL Hemoglobin 7.0 #*L 12.2-16.2 g/dL Hematocrit 23.0 #L 36.0-46.0 % Mean Corpuscular Volume 100.9 H 80.0-100.0 fL Mean Corpuscular Hemoglobin 30.8 28.0-32.0 pg Mean Corpuscular Hemoglobin Concent 30.5 L 32.0-36.0 g/dL Red Cell Distribution Width 15.6 H 11.8-14.3 % Platelet Count 173 140-450 10^3/uL Mean Platelet Volume 7.6 6.9-10.8 fL Neutrophils (%) (Auto) 37.0-80.0 % Lymphocytes (%) (Auto) 10.0-50.0 % Monocytes (%) (Auto) 0.0-12.0 % Basophils (%) (Auto) 0.0-2.0 % Neutrophils # (Auto) 1.6-8.6 10 ^3/uL Lymphocytes # (Auto) 0.4-5.4 10 ^3/uL Monocytes # (Auto) 0-1.3 10 ^3/uL Differential Total Cells Counted 100.0 100 Neutrophils % (Manual) 38 37.0-80.0 Band Neutrophils % (Manual) 3 Lymphocytes % (Manual) 56 H 10.0-50.0 Monocytes % (Manual) 2 0-12 Eosinophils % (Manual) 1 0-7 Basophils % (Manual) 0 0.0-2.0 Metamyelocytes % (manual) 0 Myelocytes % (Manual) 0 Promyelocytes % (Manual) 0 Blast Cells % (Manual) 0 Reactive Lymphocytes 0 Platelet Estimate Adequate Suzy Cells Many Sodium Level 133 #L 136-145 mmol/L Potassium Level 4.9 3.5-5.1 mmol/L Chloride Level 100 98-107 mmol/L Carbon Dioxide Level < 10 *L 20-31 mmol/L Anion Gap 23.95716 H 5-15 Blood Urea Nitrogen 53 H 9-23 mg/dL Creatinine 3.03 H 0.550-1.02 mg/dL Glomerular Filtration Rate Calc 17 >90 mL/min BUN/Creatinine Ratio 17.5 10.0-20.0 Serum Glucose 97 74-106 mg/dL Lactic Acid Level 14.7 *H 0.4-2.0 mmol/L Calcium Level 8.2 L 8.7-10.4 mg/dL Test 11/07/24 03:10 11/06/24 22:00 11/06/24 21:00 Range/Units Total Bilirubin 0.6 0.2-1.0 mg/dL Aspartate Amino Transferase (AST) 327 H 13-40 U/L Alanine Aminotransferase (ALT) 105 H 7-40 U/L Alkaline Phosphatase 100 46-116 U/L Troponin I High Sensitivity 49 *H </=34 ng/L Total Protein 5.0 L 5.7-8.2 g/dL Albumin 3.0 L 3.2-4.8 g/dL Nucleated Red Blood Cells 1.0 % Lipase 126 H 12-53 U/L B-Type Natriuretic Peptide 369.04 0-100 pg/mL Plasma/Serum Blood Alcohol < 3.0 <10 mg/dL Assessment Impression: Acute hypoxic respiratory failure On mechanical ventilator Septic shock Atelectasis Plan: s/p intubation on mechanical ventilator. CXR image and report reviewed. Devices in place. Bilateral opacities. No pneumothorax. No pleural effusion. ABG reviewed. Severe acidemia. Ventilator changes made. On AC mode; RR 26, VT 500, PEEP 5, FiO2 70% Titrate FIO2 to keep O2 saturation above 90%. VAP bundle. Daily ABG and CXR while intubated Sedate for ventilator synchrony On pressors for hemodynamic support On multiple pressors Titrate to keep mean arterial pressure greater than 65 mmHg. Monitor renal function Monitor electrolytes. Supplement as necessary. Monitor ins and outs. GI prophylaxis. DVT prophylaxis. Awaiting family decision for goals of care. Prognosis: Poor given patient's multiple co-morbidities. High likelihood of demise Condition: Critical Rest of plan per hospitalist and other consultants. A total of 36 minutes of critical care time was spent reviewing the patient record, examining the patient, making a diagnostic and therapeutic plan, discussing this plan with the medical personnel, following up on diagnostic studies and following the patient for clinical stability excluding any and all procedures. At least 50% of this time was spent in direct, [id number] contact. Thank you, Dr Bryant/VALENTINA Woodard, for allowing me to participate in this patient's care. Further recommendations will depend on the patient's clinical course. Please do not hesitate to contact me if you have any questions or concerns. This medical document was created using an electronic medical record system with [employer] computerized dictation system. Although these documentations are being carefully reviewed, there may still be some phonetic and typographical changes. The errors are purely typographical, due to imperfection on the software program, and do not reflect any compromise in the patient's medical care. Plan discussed with: Other (CHARLETTE Murcia/Dr Bryant) KUSUM FREEDMAN MD Nov 07, 2024 14:04
[2024-11-07] MEDS ORDERED: CEFEPIME 1GM/ 50ML 50 ML IV SCH (22:00)
[2024-11-09 11:20] LABS: Hepatitis B Surface Antigen Negative (Negative)
[2024-11-09 11:43] LABS: Hepatitis C Antibody Negative (Negative)
== END 2024-11-07 11:00 | DRG 871 ==
LOC: EDBD 20:50 → ER 20:50 → OVERFLOW 11-07 03:13
PROVIDERS: ADMIT Nurse Practitioner Family; ATTEND Nurse Practitioner Family
PROC: 06HY33Z Insertion of Infusion Device into Lower Vein, Percutaneous Approach (ICD-10-PCS; principal; 2024-11-06)
PROC: 0BH17EZ Insertion of Endotracheal Airway into Trachea, Via Natural or Artificial Opening (ICD-10-PCS; 2024-11-06)
PROC: 5A1935Z Respiratory Ventilation, Less than 24 Consecutive Hours (ICD-10-PCS; 2024-11-06)
PROC: 5A12012 Performance of Cardiac Output, Single, Manual (ICD-10-PCS; 2024-11-06)
PROC: 30233N1 Transfusion of Nonautologous Red Blood Cells into Peripheral Vein, Percutaneous Approach (ICD-10-PCS; 2024-11-07)
PROC: 0D9670Z Drainage of Stomach with Drainage Device, Via Natural or Artificial Opening (ICD-10-PCS; 2024-11-07)
DX: A41.59 Other Gram-negative sepsis (principal); J96.01 Acute respiratory failure with hypoxia; R65.21 Severe sepsis with septic shock; S42.302A Unspecified fracture of shaft of humerus, left arm, initial encounter for closed fracture; E87.20 Acidosis, unspecified; K56.609 Unspecified intestinal obstruction, unspecified as to partial versus complete obstruction; K92.2 Gastrointestinal hemorrhage, unspecified; N17.9 Acute kidney failure, unspecified; J98.11 Atelectasis; F17.200 Nicotine dependence, unspecified, uncomplicated; R00.1 Bradycardia, unspecified; D64.9 Anemia, unspecified; N18.9 Chronic kidney disease, unspecified; Z79.899 Other long term (current) drug therapy; Z79.891 Long term (current) use of opiate analgesic; Z79.1 Long term (current) use of non-steroidal anti-inflammatories (NSAID); Z81.8 Family history of other mental and behavioral disorders; Z86.74 Personal history of sudden cardiac arrest; X58.XXXA Exposure to other specified factors, initial encounter; Y93.9 Activity, unspecified
CPT/HCPCS: 31500; 36415; 36556; 36600; 70450; 71045; 71250; 73060; 74176; 80048; 80053; 80320; 82805; 82962; 83605; 83690; 83735; 83880; 84100; 84484; 85007; 85027; 86803; 86850; 86900; 86901; 86920; 87040; 87070; 87077; 87186; 87205; 87340; 92950; 93005; 93306; 94002; 94003; 96365; 96368; 96375; 99291; G0378; J0692; J2405